=== PATIENT | male | born 1950 | race Caucasian/White ===

== ENCOUNTER → 2016-10-24 | Outpatient (CLI) | payer OTHER ==
[~2016-10-24] MED LIST: ADVIN10/60 INH; ALBU1AER9 INH; ATEN50TA8 PO; ATOR-24 PO; AVD5 PO; CLS20 PO; HYDC25 PO; MODA100T17 PO; MULTIGEN; PANT40TA PO; ROPI2TAB6 PO; SNG10 PO; SOLI10TA2 PO
[2016-10-24 13:57] LABS: BLOOD UREA NITROGEN 24 mg/dl (7-18); BUN/CREATININE RATIO 30.8 (10-20); CALCIUM 8.6 mg/dl (8.5-10.1); CARBON DIOXIDE 27 mmol/L (21-32); CHLORIDE 107 mmol/L (98-107); CREATININE 0.78 mg/dl (0.60-1.40); GLUCOSE 99 mg/dl (70-99); MAGNESIUM 2.3 mg/dl (1.8-2.4); POTASSIUM 4.3 mmol/L (3.5-5.1); SODIUM 141 mmol/L (136-145)
== END | disposition home or self-care (01) ==
LOC: C.LABMFLN 07:51
PROVIDERS: ATTEND Internal Medicine
DX: I50.33 Acute on chronic diastolic (congestive) heart failure (principal)

== ENCOUNTER → 2016-12-22 | Outpatient (CLI) | payer OTHER ==
[2016-12-22 18:26] LABS: ALT/SGPT 29 U/L (12-78); AST/SGOT 16 U/L (15-37); BLOOD UREA NITROGEN 27 mg/dl (7-18); BUN/CREATININE RATIO 31.6 (10-20); CARBON DIOXIDE 34 mmol/L (21-32); CHLORIDE 95 mmol/L (98-107); CREATININE 0.84 mg/dl (0.60-1.40); GLUCOSE 85 mg/dl (70-99); POTASSIUM 3.2 mmol/L (3.5-5.1); SODIUM 139 mmol/L (136-145)
[2016-12-22 18:36] LABS: ALB/GLOB RATIO 1.3 (0.9-2); ALKALINE PHOSPHATASE 122 U/L (45-117)
[2016-12-22 18:52] LABS: BASO % 0.5 %; BASO ABS # 0.05 K/uL (0-0.2); COMPLETE YES; EOS % 2.7 %; HEMATOCRIT 47.1 % (42-52); IG% 0.3 %; LYMPH % 20.4 %; LYMPH ABS # 1.93 K/uL (1.2-3.4); MEAN CELL VOLUME 84.6 fL (80-100); MEAN CORPUSCULAR HEMOGLOBIN 29.4 pg (25-34); MEAN CORPUSCULAR HGB CONC 34.8 g/dl (32-36); MEAN PLATELET VOLUME 11.3 fL (7.4-10.4); MONO % 13.1 %; PLATELET COUNT 199 K/uL (130-400); RED BLOOD COUNT 5.57 M/uL (4.7-6.1); WHITE BLOOD COUNT 9.48 K/uL (4.8-10.8)
[2016-12-23 07:21] LABS: ESTIMATED AVERAGE GLUCOSE 111 mg/dl; HA1C FLAG Normal (Normal)
== END | disposition home or self-care (01) ==
LOC: C.LABMFLN 12:21
PROVIDERS: ATTEND Family Medicine
DX: R60.9 Edema, unspecified (principal); R73.01 Impaired fasting glucose; E55.9 Vitamin D deficiency, unspecified; E53.8 Deficiency of other specified B group vitamins

== ENCOUNTER 2022-02-13 09:45 | Observation (INO) ==
--- NOTE | 2022-01-22 12:54 | PAT Medication Instructions ---
Medication Instructions Date of Service January 22, 2022 Home Medications ascorbic acid (vitamin C) 500 mg capsule 500 mg PO BID aspirin 81 mg tablet 81 mg PO 3XWK atorvastatin 40 mg tablet 40 mg PO UD carvedilol 12.5 mg tablet 12.5 mg PO BID cholecalciferol (vitamin D3) 50 mcg (2,000 unit) tablet 2,000 units PO QAM losartan 50 mg tablet 50 mg PO QAM lutein 20 mg tablet 20 mg PO QAM magnesium oxide 400 mg PO HS montelukast 10 mg tablet 10 mg PO HS naltrexone 8 mg-bupropion 90 mg tablet,extended release (Contrave) 2 tab PO BID pantoprazole 20 mg tablet,delayed release 20 mg PO QAM spironolactone 25 mg tablet 25 mg PO QAM triamcinolone acetonide 0.1 % topical cream 1 applic TOPICAL DAILY PRN tolterodine 2 mg capsule,extended release 24 hr 2 mg PO QAM torsemide 10 mg tablet 10 mg PO QAM carbidopa ER 25 mg-levodopa 100 mg tablet,extended release 1 tab PO DAILY PRN finasteride 5 mg tablet 5 mg PO QAM modafinil 200 mg tablet 200 mg PO DAILY PRN prednisone 20 mg tablet 20 mg PO UD PRN ropinirole 0.5 mg tablet 0.5 mg PO HS ropinirole 2 mg tablet 2 mg PO HS turmeric 400 mg capsule 400 mg PO QAM Continue as directed aspirin 81 mg tablet 81 mg PO 3XWK (continue as normal unless told otherwise by surgeon) prednisone 20 mg tablet 20 mg PO UD PRN (for gout flare) atorvastatin 40 mg tablet 40 mg PO UD ASK your prescriber and surgeon naltrexone 8 mg-bupropion 90 mg tablet,extended release (Contrave) 2 tab PO BID (Stop 72 hours prior to surgery if okay with prescriber) STOP taking 2 weeks before surgery (or as soon as possible if surgery is within 2 weeks) lutein 20 mg tablet 20 mg PO QAM turmeric 400 mg capsule 400 mg PO QAM STOP taking 24 hours before surgery triamcinolone acetonide 0.1 % topical cream 1 applic TOPICAL DAILY PRN DO NOT take the morning of surgery ascorbic acid (vitamin C) 500 mg capsule 500 mg PO BID cholecalciferol (vitamin D3) 50 mcg (2,000 unit) tablet 2,000 units PO QAM losartan 50 mg tablet 50 mg PO QAM spironolactone 25 mg tablet 25 mg PO QAM tolterodine 2 mg capsule,extended release 24 hr 2 mg PO QAM torsemide 10 mg tablet 10 mg PO QAM modafinil 200 mg tablet 200 mg PO DAILY PRN Take morning of surgery With a small sip of water, OTHERWISE NOTHING TO EAT OR DRINK AFTER MIDNIGHT: carvedilol 12.5 mg tablet 12.5 mg PO BID pantoprazole 20 mg tablet,delayed release 20 mg PO QAM carbidopa ER 25 mg-levodopa 100 mg tablet,extended release 1 tab PO DAILY PRN (if needed) finasteride 5 mg tablet 5 mg PO QAM Take evening before surgery ascorbic acid (vitamin C) 500 mg capsule 500 mg PO BID carvedilol 12.5 mg tablet 12.5 mg PO BID magnesium oxide 400 mg PO HS montelukast 10 mg tablet 10 mg PO HS carbidopa ER 25 mg-levodopa 100 mg tablet,extended release 1 tab PO DAILY PRN (if needed) modafinil 200 mg tablet 200 mg PO DAILY PRN (if needed) ropinirole 0.5 mg tablet 0.5 mg PO HS ropinirole 2 mg tablet 2 mg PO HS Other Notes If you have any questions please call us at [phone] or [phone] or [phone] or [phone]
--- NOTE | 2022-01-24 13:24 | Anesthesiology Consultation ---
Date of Service January 24, 2022 Assessment & Plan (1) Encounter for pre-operative examination: - COVID screening: Per assessment on 01/24: No known COVID-19 positive contacts or current COVID-19 related symptoms. Travel screen negative x 2+ weeks. Patient vaccinated. Surgeon arranging preop COVID testing. Awaiting results. - Cardiology office visit (01/14/22): "No concerning anginal symptoms. He is limited by problems with his left knee and is being evaluated further surgery in the near future.. He is going to be scheduled for knee surgery in the near future on his left knee. From a cardiac standpoint there is no contraindication to him undergoing surgery and he is at low risk. Because of history of pulmonary hypertension diastolic heart failure would recommend his diuretics be continued post surgery and he may need additional dose or 2 of IV diuretics in the immediate postop period to help maintain volume status. As soon as possible following his knee surgery I think it would be worthwhile for him to start wearing his lymphedema pumps to help control swelling.. He has bilateral lymphedema.. Is post ablation procedure of the greater saphenous veins bilaterally.. Pulmonary hypertension.. Breathing has been at baseline. No significant changes. Will reassess pulmonary pressures at the time of his stress test next year.. Return in about 1 year." Chart Review Chart Review: Acceptable Risk for Surgery and Patient seen in Pre Admission Testing Teaching & Discussion Pre-Anesthesia Teaching/Discussion Notes: Instructed NPO after midnight before surgery,except medications with 15 cc of water. Medication instructions provided according to the PAT guidelines. History Surgery Operation Date: 02/13/22 12:30 Proposed Procedures p Left Total Knee Arthroplasty - Damien Flores MD Height/Weight Height: 5 ft 9 in Weight: 105.9 kg Allergies Allergy/AdvReac Type Severity Reaction Status Date / Time amoxicillin Allergy Intermediate Rash Verified 01/24/22 13:15 carrot Allergy Mild Impaired Verified 01/24/22 13:15 breathing lisinopril AdvReac Mild Cough Verified 01/24/22 13:15 Medications Home Medications Medication Instructions Recorded Confirmed Last Taken ascorbic acid (vitamin C) 500 mg 500 mg PO BID cap 07/22/19 01/22/22 Unknown capsule aspirin 81 mg tablet 81 mg PO 3XWK tab 07/22/19 01/22/22 Unknown atorvastatin 40 mg tablet 40 mg PO UD tab 07/22/19 01/22/22 Unknown carvedilol 12.5 mg tablet 12.5 mg PO BID #180 tab 07/22/19 01/22/22 Unknown cholecalciferol (vitamin D3) 50 2,000 units PO QAM tab 07/22/19 01/22/22 Unknown mcg (2,000 unit) tablet losartan 50 mg tablet 50 mg PO QAM #30 tab 07/22/19 01/22/22 Unknown lutein 20 mg tablet 20 mg PO QAM tab 07/22/19 01/22/22 Unknown magnesium oxide 400 mg PO HS cap 07/22/19 01/22/22 Unknown montelukast 10 mg tablet 10 mg PO HS tab 07/22/19 01/22/22 Unknown naltrexone 8 mg-bupropion 90 mg 2 tab PO BID 07/22/19 01/22/22 Unknown tablet,extended release (Contrave) pantoprazole 20 mg tablet,delayed 20 mg PO QAM tab 07/22/19 01/22/22 Unknown release spironolactone 25 mg tablet 25 mg PO QAM tab 07/22/19 01/22/22 Unknown triamcinolone acetonide 0.1 % 1 applic TOPICAL DAILY PRN gm 07/22/19 01/22/22 Unknown topical cream tolterodine 2 mg capsule,extended 2 mg PO QAM 08/23/19 01/22/22 Unknown release 24 hr torsemide 10 mg tablet 10 mg PO QAM 08/15/20 01/22/22 Unknown carbidopa ER 25 mg-levodopa 100 mg 1 tab PO DAILY PRN 01/22/22 01/22/22 Unknown tablet,extended release finasteride 5 mg tablet 5 mg PO QAM 01/22/22 01/22/22 Unknown modafinil 200 mg tablet 200 mg PO DAILY PRN 01/22/22 01/22/22 Unknown prednisone 20 mg tablet 20 mg PO UD PRN 01/22/22 01/22/22 Unknown ropinirole 0.5 mg tablet 0.5 mg PO HS 01/22/22 01/22/22 Unknown ropinirole 2 mg tablet 2 mg PO HS 01/22/22 01/22/22 Unknown turmeric 400 mg capsule 400 mg PO QAM 01/22/22 01/22/22 Unknown Wheeled Walker #1 ea 01/24/22 01/24/22 Unknown Past Medical History Medical History BPH (benign prostatic hyperplasia) CAD (coronary artery disease) Non-obstructive Diastolic congestive heart failure Dyslipidemia GERD (gastroesophageal reflux disease) Hypertension Left knee DJD Overeating disorder Contrave daily Restless leg syndrome Carbidopa-levadopa PRN Sleep apnea CPAP Exercise / Class Metabolic Activity II 4-5 Yardwork/Stairs/Walk up hill (one FS (no CP, no SOB)) Past Family History Family History Father Myocardial infarction Mother Myocardial infarction Other No family history of adverse response to anesthesia Past Surgical History Surgical History History of anesthesia reaction Awareness during anesthesia/surgery (colonoscopy & hernia repair) History of appendectomy History of cardiac cath ~2018 ([facility]) > no stents History of colonoscopy History of cystoscopy History of decompression of median nerve pt unaware History of hernia repair inguinal hernia repair History of partial colectomy [facility]. r/t large polyp History of tonsillectomy History of uvulectomy S/P carpal tunnel release bilateral S/P epidural steroid injection cervical Past Anesthesia History No Family Hx of Anesthesia Complications and Other (Awareness during anesthesia/surgery (colonoscopy & hernia repair)) History of PONV No Hx of PONV and No Hx of Motion Sickness Social History Smoking Status: Never smoker Do You Dip or Chew Tobacco: No Hx Alcohol Use: Yes alcohol intake frequency: holidays/special occasions only Hx Substance Use: No substance use type: does not use Review of Systems Patient denies chest pain, shortness of breath, dyspnea on exertion, fever, chills, cough, wheezing, palpitations. Physical Exam Vital Signs VITALS BP 149/75 P 58 TEMP 97.5 SP02 98%RA RESP 16 PHYSICAL Mildly decreased cervical extension range of motion. Full TMJ range of motion. TMD 4 finger breaths Mallampati Score 3 Dentition: missing molar Lungs: clear throughout to auscultation Cardiac: regular rate and rhythm, no murmurs noted Spine: normal Carotid arteries: negative bruit Extremities: + lymphedema Lab Results Anesthesia Preop Results Results Anesthesia Widget: WBC 8.62 K/uL (4.8-10.8) 01/24/22 Hgb 15.1 g/dL (14.0-18.0) 01/24/22 Hct 44.5 % (42-52) 01/24/22 Plt 195 K/uL (130-400) 01/24/22 Na 137 mmol/L (136-145) 01/24/22 K 4.5 mmol/L (3.5-5.1) 01/24/22 Cl 105 mmol/L (98-107) 01/24/22 CO2 26 mmol/L (21-32) 01/24/22 BUN 23 mg/dl (6-23) 01/24/22 Creat 0.70 mg/dl (0.6-1.4) 01/24/22 Glucose Level 84 mg/dl (70-99(Fasting)) 01/24/22 PT 11.0 Seconds (9.0-12.0) 01/24/22 PTT 28.2 Seconds (21.0-31.0) 01/24/22 INR 1.0 (0.9-1.1) 01/24/22 Blood Type O Negative 01/24/22 Antibody Screen NEGATIVE 01/24/22 Testing Electrocardiogram Date: 01/24/22 SB at 56bpm. unconfirmed report. Chest X-Ray Date: 01/24/22 Findings: + NAD Echocardiogram Date: 02/02/17 LVEF 67%. Mildly increased concentric LV wall thickness. No regional motion abnormality. Grade 12 diastolic dysfunction. Moderate LAE. Mildly dilated IVC. Mild TR. Stress Test Date: 05/28/20 No evidence of ECG changes to suggest ischemia. Normal stress echo without evidence of infarct or ischemia. Trace to mild AI. EF 55-60%. Mild MR. Cardiac Catheterization Date: 06/04/17 Moderately elevated right heart pressures as well as the left ventricular end- diastolic pressure. EF greater than 65%. No significant valvular disease. Moderate disease in the proximal LAD with normal FFR assessment.
[~2022-02-13 09:45] MED LIST changes: +ACETAMINOPHEN 500 MG TAB PO SCH; -ADVIN10/60 INH; -ALBU1AER9 INH; -ATEN50TA8 PO; -ATOR-24 PO; -AVD5 PO; +BUPIVACAINE 0.5 % 5 MG/1 ML MPF 30ML VIAL ONE; +BUPIVACAINE LIPOSOME/PF 266 MG, BUPIVACAINE/EPINEPHRINE 50 ML, SODIUM CHLORIDE 0.9% 30 ... INFIL SCH; -CLS20 PO; +FAMOTIDINE 20 MG TAB PO SCH; -HYDC25 PO; +LR 500ML BOLUS, THEN 15ML/HR IV SCH; +LR 60ML/HR IV SCH; +METOCLOPRAMIDE HCL 10 MG TABLET PO SCH; -MODA100T17 PO; -MULTIGEN; -PANT40TA PO; -ROPI2TAB6 PO; +ROPIVACAINE 0.5% 5 MG/ML 30 ML VIAL ONE; -SNG10 PO; -SOLI10TA2 PO; +TRANEXAMIC ACID 1,000 MG **IV Pre-op IV SCH; +ceFAZolin 2000MG 2,000 MG/15 ML SYR IV SCH
--- NOTE | 2022-02-13 10:30 | History & Physical Bridge Note ---
Date of Service February 13, 2022 History & Physical Bridge Note I have examined the patient, reviewed the History & Physical and in the interval since the performance of the History & Physical I have noted the following changes of clinical significance: no changes noted
[2022-02-13] MEDS ORDERED: LIDOCAINE 2% 2 ML VIAL/AMP(20MG/ML) INFIL ONE (11:20)
[2022-02-13] MEDS ORDERED: PROPOFOL IV EMULSION 10 MG/ML 20 ML VIAL IV ONE ×3 (11:20→13:45)
[2022-02-13] MEDS ORDERED: ePHEDrine sulfate 50 MG/ML SYR ONE (11:20)
[2022-02-13] MEDS ORDERED: PHENYLEPHRINE 100MCG/ML 5ML SYR ONE (11:20)
[2022-02-13] MEDS ORDERED: fentaNYL citrate 100 MCG/2 ML VIAL ONE (11:21)
[2022-02-13] MEDS ORDERED: MIDAZOLAM HCL 1 MG/ML 2ML VIAL ONE ×2 (11:21)
[2022-02-13] MEDS ORDERED: BUPIVACAINE LIPOSOME 1.3% 266 MG/20 ML VIAL ONE (11:32)
[2022-02-13] MEDS ORDERED: BUPIVACAINE/EPINEPHRINE 0.25% 1:200,000 30 ML VIAL ONE (11:33)
[2022-02-13] MEDS ORDERED: SODIUM CHLORIDE 0.9% PF 50 ML VIAL ONE (11:33)
[2022-02-13] MEDS ORDERED: ePHEDrine sulfate 50 MG/ML AMP IV PRN (11:52)
[2022-02-13] MEDS ORDERED: KETOROLAC 30 MG/ML VIAL IV PRN (11:52)
[2022-02-13] MEDS ORDERED: HYDROmorphone INJ 1 MG/ML SYRINGE IV PRN (11:52)
[2022-02-13] MEDS ORDERED: ONDANSETRON INJ 2 MG/ML 2 ML VIAL IV PRN ×2 (11:52→16:07)
[2022-02-13] MEDS ORDERED: ATROPINE SULFATE 0.1 MG/ML 10ML SYR IV PRN (11:52)
--- NOTE | 2022-02-13 14:40 | Post Operative Brief Note ---
PG Immediate Post Op with CF Date of Surgery February 13, 2022 Pre & Post Diagnosis Operation Date: 02/13/22 12:30 Pre-Op Diagnosis: Left Knee Osteoarthritis Post-Op Diagnosis: Left Knee Osteoarthritis I identified the patient and participated in the time-out.: Yes Procedure Operation Date: 02/13/22 12:30 Actual Procedures p Left Total Knee Arthroplasty(Left) - Damien Flores MD Surgeon Damien Flores MD Stove Fitter Bowen Kirby PA-C Estimated Blood Loss 100 Findings Consistent with Post-Op Diagnosis Specimens Specimen Description: A. Left Knee Bone and Tissue Drains Tyler Catheter Complications none Disposition Accompanied Patient To Recovery: No
--- NOTE | 2022-02-13 15:22 | XRay Report ---
XR knee LT 1 or 2V routine CLINICAL HISTORY: Postoperative evaluation. COMPARISON: Knee radiographs January 24, 2022. FINDINGS: Alignment of the total left knee arthroplasty is anatomic. There is no periprosthetic frac ture. No unexpected radiopaque foreign bodies are present. There are skin rené. IMPRESSION: Expected findings following total left knee arthroplasty. ACT 112: Negative or not required by law. Electronically signed by: Hudson Aragon M.D. 02/13/2022 3:20 PM
--- NOTE | 2022-02-13 15:29 | Anesthesiology Progress Note ---
Date of Service February 13, 2022 Anesthesia Post Procedure Vital Signs Vital Signs: Temp Pulse Pulse Resp BP Pulse Ox 02/13/22 15:25 36.3 C L 57 L 18 140/69 96 02/13/22 15:15 61 20 106/77 97 02/13/22 15:05 60 18 110/69 98 02/13/22 14:55 57 L 16 118/57 L 100 02/13/22 14:45 60 14 110/57 L 99 02/13/22 14:39 36.2 C L 57 L 22 125/56 L 100 02/13/22 10:32 36.6 C 56 L 20 140/79 99 Transfer of Care Handoff Completed per policy Notes Mental Status: alert / awake / arousable Patient Amnestic to Procedure: Yes Nausea / Vomiting: adequately controlled Pain: adequately controlled Airway Patency, RR, SpO2: stable & adequate BP & HR: stable & adequate Hydration State: stable & adequate Neuraxial Anesthesia: was administered and sensory block is resolving Anesthetic Complications: no major complications apparent
[2022-02-13] MEDS ORDERED: bisacodyL 10 MG SUPP PR PRN (16:07)
[2022-02-13] MEDS ORDERED: modafiniL 100 MG TAB PO PRN (16:07)
[2022-02-13] MEDS ORDERED: CARBIDOPA/LEVODOPA 25/100MG EXT REL TAB PO PRN (16:07)
[2022-02-13] MEDS ORDERED: NALOXONE HCL 0.4 MG/1 ML VIAL/CARP IV PRN (16:07)
[2022-02-13] MEDS ORDERED: HYDROmorphone INJ 0.5 MG/0.5 ML SYR IV PRN (16:07)
[2022-02-13] MEDS ORDERED: TRIAMCINOLONE ACET 0.1% CR 15 GM TUBE TOP PRN (16:07)
[2022-02-13] MEDS ORDERED: predniSONE 20 MG TAB PO PRN (16:07)
[2022-02-13] MEDS ORDERED: METOCLOPRAMIDE HCL INJ 5 MG/ML 2 ML VIAL IV PRN (16:07)
[2022-02-13] MEDS ORDERED: ALUMINUM/MAGNESIUM SUSP 30 ML UDC PO PRN (16:07)
[2022-02-13] MEDS ORDERED: MAGNESIUM HYDROXIDE SUSP 30 ML UDC PO PRN (16:07)
[2022-02-13] MEDS: SODIUM CHLORIDE 0.9% 1000ML 1,000 ML IV SCH (16:22)
--- NOTE | 2022-02-13 17:18 | Operative Report ---
PG Post Operative Report Pre & Post Diagnosis Operation Date: 02/13/22 12:30 Pre-Op Diagnosis: Left Knee Osteoarthritis Post-Op Diagnosis: Left Knee Osteoarthritis I identified the patient and participated in the time-out.: Yes Procedure Operation Date: 02/13/22 12:30 Actual Procedures p Left Total Knee Arthroplasty(Left) - Damien Flores MD Surgeon Damien Flores MD Boat Outfitter Bowen Kirby PA-C Estimated Blood Loss 100 Findings Consistent with Post-Op Diagnosis Operative findings revealed advanced left knee tricompartment DJD. Specimens Left knee sent for pathology. Anesthesia Type Spinal MAC Disposition Accompanied Patient To Recovery: No Indications Patient is a 71-year-old gentleman with a long history of left knee pain discomfort describes gotten worse over time. He has been through extensive conservative treatment over the years which has become less successful. X-rays show advanced left knee DJD. He elected proceed with surgical treatment. Description of Procedure Operative implants consist of: 1. Biomet Vanguard size 70 left posterior stabilized femoral component. 2. Biomet size 75 tibial tray. 3. 12 mm posterior stabilized polyethylene insert. 4. 31 x 8 all polypatella. The patient was taken to the operating, identified, placed on the operating table supine position protectors were properly padded. IV antibiotics provided by anesthesia team. Spinal anesthetic and abductor canal block and provided in the holding area. Tyler catheter was placed in sterile fashion. Left thigh tent was then placed in the left lower extremities and prepped and draped in usual sterile fashion. The left leg was elevated exsanguinated with use of an Esmarch in terms playset 300 mmHg. An anterior posterior left knee was then performed to longitudinal incision centered over the patella. Sharp dissection was carried through subcutaneous this down the extensor mechanism. A medial parapatellar arthrotomy incision was made. Some subperiosteal dissection was carried out medially. The fat pad was dissected from each patella tendon. Lateral patellofemoral ligament was released. The patella was subluxated laterally and the knee was flexed. The osteophytes taken out distal femur. The ACL and PCL were then released from distal femur and the tibia subluxated anteriorly. The external treatment line jig was then placed in the interface the tibia and adjusted 14 mm medially. Proximal tibial cut was made remove about 2 mm of bone from most deficient aspect medial tibial plateau. The tibia was sized to a size 75. Attention drawn the femur. The distal femurWas entered with a sharp drill.The intramedullary canal was suction.A left 6 degree valgus cutting guide was placed. Distal femoral cut was made to take an additional 3 mm bone off distal femur. Femur sized to a size 70. The AP cutting block was pinned parallel to the epicondylar axis.The AP and chamfer cuts were made. The box cutting guide was placed but cut was madeThe remnants of the medial and lateral menisci were excised. The osteophytes were taken off posteriorly. Trial femoral component was placed. Tibial tray was pinned in maximum external rotation and the drill and stem punch used to create defect in proximal tibia for the tibial tray.Knee was trialed the 12 mm insert fit most appropriately. Attention drawn the patella. The patella was cleaned of soft tissues. Patella thickness measured 20 mm and cut down to 12. Was sized to a size 31 patella. It was prepared for the patella. The patella button was placed and it tracked nicely with no thumbs test. All trial components were removed. Double batch Palacos G cement was mixed. The implants were cemented and the knee was brought in full extension. Final cement check was then performed. The extensor mechanism was prepared with #1 PDS suture #1 Vicryl suture. This Tourniquet was let down for turn time 57 minutes. Hemostasis surgeons electrocautery. Extensor mechanism was closed followed by the subcutaneous tissues and skin with rené. A sterile dressing was applied. Patient then transferred to the recovery room in stable condition. Bowen Kirby, my physician architectural administrative assistant, was present for the entire procedure. His assistance was essential and required for appropriate patient positioning, prepping and draping, surgical exposure, performing the technical details of the operation, placement the implants, closure of the wound, and placement of the sterile bandage. I attest to the content of the Intraoperative Record and any orders documented therein. Any exceptions are noted below.
[2022-02-13] MEDS: ATORVASTATIN 40 MG TAB PO SCH (17:22)
[2022-02-13] MEDS: ASCORBIC ACID 500 MG TAB PO SCH (17:22)
[2022-02-13] MEDS: KETOROLAC TROMETHAMINE 15 MG/ML VIAL IV SCH ×2 (17:22→22:31)
[2022-02-13] MEDS: ceFAZolin 2000MG 2,000 MG/15 ML SYR IV SCH (20:13)
[2022-02-13] MEDS: rOPINIRole HCL 0.25 MG TABLET PO SCH (20:14)
[2022-02-13] MEDS: DOCUSATE SODIUM 100 MG CAP PO SCH (20:14)
[2022-02-13] MEDS: MAGNESIUM OXIDE 400 MG TAB PO SCH (20:14)
[2022-02-13] MEDS: MONTELUKAST SODIUM 10 MG TABLET PO SCH (20:14)
[2022-02-13] MEDS: carvediloL 12.5 MG TAB PO SCH (20:14)
[2022-02-13] MEDS: rOPINIRole HCL 2 MG TABLET PO SCH (20:14)
[2022-02-13] MEDS: TAPENTADOL HCL ER 50 MG TABCR PO SCH (20:14)
[2022-02-13] MEDS: SENNA 8.6 MG TAB PO SCH (20:15)
[2022-02-13] MEDS: ASPIRIN 81 MG ECTAB PO SCH (20:15)
[2022-02-13] MEDS ORDERED: TRANEXAMIC ACID / 0.7% NACL 1,000 MG/100 ML BAG IV SCH (20:45)
[2022-02-13] MEDS ORDERED: NON-FORMULARY MEDICATION (Ascorbic Acid (Vitamin C) 500 mg capsule) PO SCH (21:00)
[2022-02-13] MEDS: ACETAMINOPHEN 500 MG TAB PO SCH (22:32)
[2022-02-14] MEDS: SODIUM CHLORIDE 0.9% 1000ML 1,000 ML IV SCH (02:59)
[2022-02-14] MEDS: ceFAZolin 2000MG 2,000 MG/15 ML SYR IV SCH (05:08)
[2022-02-14] MEDS: KETOROLAC TROMETHAMINE 15 MG/ML VIAL IV SCH ×4 (05:08→21:12)
[2022-02-14] MEDS: ACETAMINOPHEN 500 MG TAB PO SCH ×3 (05:42→21:11)
[2022-02-14 07:30] LABS: Hematocrit (blood only) 37.8 % (42-52); Hemoglobin 12.4 g/dL (14.0-18.0); Mean Corpuscular Hemoglobin 29.5 pg (25-34); Mean Corpuscular Hgb Conc 32.8 g/dL (32-36); Mean Platelet Volume 10.7 fL (7.4-10.4); Platelet Count 146 K/uL (130-400); RDW Coefficient of Variation 13.6 % (11.5-14.5); RDW Standard Deviation 44.5 fL (36.4-46.3); White Blood Count 7.22 K/uL (4.8-10.8)
[2022-02-14] MEDS: ASCORBIC ACID 500 MG TAB PO SCH ×2 (07:31→16:24)
[2022-02-14] MEDS: PANTOprazole 40 MG TAB PO SCH (07:32)
[2022-02-14] MEDS: DOCUSATE SODIUM/SENNA 50/8.6MG TAB PO SCH (07:33)
[2022-02-14] MEDS: LOSARTAN POTASSIUM 50 MG TAB PO SCH (07:33)
[2022-02-14] MEDS: carvediloL 12.5 MG TAB PO SCH ×2 (07:33→21:10)
[2022-02-14] MEDS: FINASTERIDE 5 MG TAB PO SCH (07:34)
[2022-02-14] MEDS: ASPIRIN 81 MG ECTAB PO SCH ×2 (07:34→21:09)
[2022-02-14] MEDS: DOCUSATE SODIUM 100 MG CAP PO SCH ×2 (07:34→21:11)
[2022-02-14] MEDS: MULTIVITAMIN TAB PO SCH (07:34)
[2022-02-14] MEDS: CHOLECALCIFEROL 1,000 UNITS 25 MCG TAB PO SCH (07:34)
[2022-02-14] MEDS: TOLTERODINE TARTRATE LA 2 MG CAPCR PO SCH (07:35)
[2022-02-14] MEDS: TORSEMIDE 10 MG TAB PO SCH (07:35)
[2022-02-14] MEDS: TAMSULOSIN HCL 0.4 MG CAP PO SCH (07:35)
[2022-02-14] MEDS: SPIRONOLACTONE 25 MG TAB PO SCH (07:35)
[2022-02-14] MEDS: ATORVASTATIN 40 MG TAB PO SCH (07:36)
[2022-02-14 07:55] LABS: BUN Creatinine Ratio 31.4 (10-20); Calcium 8.1 mg/dl (8.5-10.1); Creatinine Clr Calc Pharmacy 115.4 ml/min; Est GFR (Non-African American) 94.9 ml/min
[2022-02-14] MEDS ORDERED: dexAMETHasone 10 MG in SYRINGE 0 ML IV SCH (08:00)
[2022-02-14] MEDS: TAPENTADOL HCL ER 50 MG TABCR PO SCH ×2 (08:16→21:09)
--- NOTE | 2022-02-14 08:20 | Progress Notes ---
DATE OF SERVICE: 02/14/2022. SUBJECTIVE: A 71-year-old gentleman, postoperative day 1 from a left knee replacement. He is doing well. He had a pretty good night. Pain is controlled. No chest pain or shortness of breath. Not f eeling dizzy or lightheaded. OBJECTIVE: VITAL SIGNS: Temperature is 36.5. Vital signs are stable. GENERAL: Physical examination shows a pleasant, elderly male. He is sitting up in bed and looks talia te comfortable this morning. LUNGS: Clear to auscultation. HEART: Regular rate and rhythm. ABDOMEN: Soft, nontender, nondistended. EXTREMITIES: Grossly neurovascularly intact except as follows: Examination of the left lower extrem ity reveals the dressing to be clean, dry and intact. He can dorsiflex and plantarflex his foot appr opriately. NEUROLOGIC: He is neurologically intact. LABORATORY DATA: Hemoglobin 12.4. Hematocrit 37.8. Electrolytes are pending. ASSESSMENT: A 71-year-old gentleman postoperative day 1 from a left knee replacement, doing well. P ain is controlled. He is neurologically intact. PLAN: 1. DVT prophylaxis including thigh-high TEDs, SCDs, and aspirin twice a day. 2. PT, OT, weightbear as tolerated. Left total knee protocol. 3. Pain control, doing okay with current pain regimen. 4. Disposition: Plan to discharge to home with some home health, depending on how therapy goes toda y. Job ID: [id number]
[2022-02-14] MEDS: oxyCODONE HCL IR 5 MG TAB (IMMEDIATE RELEASE) PO PRN (08:47)
[2022-02-14] MEDS ORDERED: NON-FORMULARY MEDICATION (Turmeric 400 mg Capsule) PO SCH (09:00)
[2022-02-14] MEDS: rOPINIRole HCL 0.25 MG TABLET PO SCH (21:09)
[2022-02-14] MEDS: MONTELUKAST SODIUM 10 MG TABLET PO SCH (21:09)
[2022-02-14] MEDS: rOPINIRole HCL 2 MG TABLET PO SCH (21:11)
[2022-02-14] MEDS: SENNA 8.6 MG TAB PO SCH (21:12)
[2022-02-14] MEDS: MAGNESIUM OXIDE 400 MG TAB PO SCH (21:12)
[2022-02-15] MEDS: KETOROLAC TROMETHAMINE 15 MG/ML VIAL IV SCH ×2 (04:35→11:00)
[2022-02-15] MEDS: ACETAMINOPHEN 500 MG TAB PO SCH (05:19)
--- NOTE | 2022-02-15 08:47 | Progress Notes ---
DATE OF SERVICE: 02/15/2022. SUBJECTIVE: A 71-year-old gentleman, postoperative day 2 from left knee replacement. He is doing qu ite a bit better this morning. Denies any chest pain or shortness of breath. Knee was pretty painfu l last night, but doing better this morning. OBJECTIVE: VITAL SIGNS: Temperature 36.6. Vital signs are stable. GENERAL: Shows a pleasant, elderly male. He is sitting up in bedside chair, looks completely comfor table. EXTREMITIES: Examination of the left leg reveals the dressing to be clean, dry and intact. He has d ifficulty doing a straight leg raise. He can dorsiflex and plantarflex his foot appropriately. He i s neurologically intact. ASSESSMENT: A 71-year-old gentleman postoperative day 2 from a left knee replacement. He seems to b e doing quite a bit better this morning. We will see how therapy goes today. His pain is controlled . PLAN: 1. DVT prophylaxis including thigh-high TEDs, SCDs, and aspirin twice a day. 2. PT, OT, weightbear as tolerated. Left total knee protocol. 3. Pain control, seems to be doing okay with current pain regimen. 4. Disposition: Plan to discharge to home with home health hopefully today. We will see how he farias s in therapy. Job ID: [id number]
[2022-02-15] MEDS: TAPENTADOL HCL ER 50 MG TABCR PO SCH (08:50)
[2022-02-15] MEDS: PANTOprazole 40 MG TAB PO SCH (08:50)
[2022-02-15] MEDS: TAMSULOSIN HCL 0.4 MG CAP PO SCH (08:50)
[2022-02-15] MEDS: oxyCODONE HCL IR 5 MG TAB (IMMEDIATE RELEASE) PO PRN (08:50)
[2022-02-15] MEDS: TOLTERODINE TARTRATE LA 2 MG CAPCR PO SCH (08:50)
[2022-02-15] MEDS: SPIRONOLACTONE 25 MG TAB PO SCH (08:50)
[2022-02-15] MEDS: TORSEMIDE 10 MG TAB PO SCH (08:50)
[2022-02-15] MEDS: ATORVASTATIN 40 MG TAB PO SCH (08:51)
[2022-02-15] MEDS: ASPIRIN 81 MG ECTAB PO SCH (08:51)
[2022-02-15] MEDS: MULTIVITAMIN TAB PO SCH (08:51)
[2022-02-15] MEDS: DOCUSATE SODIUM/SENNA 50/8.6MG TAB PO SCH (08:51)
[2022-02-15] MEDS: DOCUSATE SODIUM 100 MG CAP PO SCH (08:51)
[2022-02-15] MEDS: carvediloL 12.5 MG TAB PO SCH (08:51)
[2022-02-15] MEDS: LOSARTAN POTASSIUM 50 MG TAB PO SCH (08:51)
[2022-02-15] MEDS: ASCORBIC ACID 500 MG TAB PO SCH (08:51)
[2022-02-15] MEDS: CHOLECALCIFEROL 1,000 UNITS 25 MCG TAB PO SCH (08:51)
[2022-02-15] MEDS: FINASTERIDE 5 MG TAB PO SCH (08:51)
--- NOTE | 2022-02-18 15:05 | Discharge Summary ---
Date of Service February 18, 2022 Discharge Data Procedures Performed Operation Date: 02/13/22 12:30 Actual Procedures p Left Total Knee Arthroplasty(Left) - Damien Flores MD Hospital Course (1) Status post total left knee replacement: This patient is a 71 year old patient admitted on 02/13/22 and underwent total knee arthroplasty. He tolerated the procedure well and there were no complications. Transferred to the PACU post op and later to the orthopedic floor for further care. He was given ancef for antibiotic prophylaxis. He was also given AUBRIE stockings, SCDs, and aspirin for DVT prophylaxis. Hemoglobin, hematocrit, and vital signs were monitored during his hospital stay and remained stable. Did not require any blood transfusions. There were no complications during his hospital stay. By post op day #2 the patient was tolerating a regular diet, pain was reasonably controlled with oral pain medicine, and he was participating in physical therapy. On post op day #2 the patient was discharged home and set up with home health care. He was given printed discharge instructions including prescriptions for extra strength tylenol, aspirin, zofran, toradol, flomax, and oxycodone. Continue physical therapy, weight bearing as tolerated. Continue AUBRIE stockings. Follow up approximately 2 weeks post op or sooner if there are problems or concerns. Coding Level of Care Code None Diagnoses Status post total left knee replacement Z96.652
== END 2022-02-15 16:13 | disposition home health service (06) ==
LOC: 3E 09:45 → ASU 09:45

== ENCOUNTER 2023-12-14 09:08 | Observation (INO) ==
--- NOTE | 2023-11-16 15:50 | PAT Medication Instructions ---
Medication Instructions Date of Service November 16, 2023 Home Medications Medication Instructions Recorded clindamycin HCl 300 mg capsule 600 mg (2 x 300 mg) PO ONCE #4 caps 02/23/23 carbidopa ER 25 mg-levodopa 100 mg See Rx Instructions .Route 07/01/23 tablet,extended release .COMPLEX #30 tabs ropinirole 0.5 mg tablet See Rx Instructions .Route 09/28/23 .COMPLEX #30 tabs ropinirole 2 mg tablet See Rx Instructions .Route 09/28/23 .COMPLEX #30 tabs ascorbic acid (vitamin C) 500 mg capsule 500 mg PO BID atorvastatin 40 mg tablet 40 mg PO HS carvedilol 12.5 mg tablet 12.5 mg PO BID cholecalciferol (vitamin D3) 50 mcg (2,000 unit) tablet 2,000 units PO QAM losartan 50 mg tablet 50 mg PO QAM lutein 20 mg tablet 20 mg PO QAM magnesium oxide 400 mg PO HS montelukast 10 mg tablet 10 mg PO HS naltrexone 8 mg-bupropion 90 mg tablet,extended release (Contrave) 2 tab PO BID pantoprazole 20 mg tablet,delayed release 20 mg PO QAM triamcinolone acetonide 0.1 % topical cream 1 applic topical DAILY PRN torsemide 10 mg tablet 10 mg PO QAM finasteride 5 mg tablet 5 mg PO QAM prednisone 20 mg tablet 20 mg PO UD PRN aspirin 81 mg tablet,delayed release (Hugo Low Dose Aspirin) 81 mg PO .three times weekly tolterodine 2 mg capsule,extended release 24 hr 2 mg PO QAM clindamycin HCl 300 mg capsule 600 mg (2 x 300 mg) PO ONCE carbidopa ER 25 mg-levodopa 100 mg tablet,extended release See Rx Instructions .Route .COMPLEX mecobalamin (vitamin B12) 2,500 mcg chewable tablet 2,500 mcg PO .WEEKLY ropinirole 0.5 mg tablet See Rx Instructions .Route .COMPLEX ropinirole 2 mg tablet See Rx Instructions .Route .COMPLEX modafinil 200 mg tablet 200 mg PO DAILY PRN nystatin 100,000 unit/gram topical cream 1 applic topical BID PRN spironolactone 25 mg tablet 25 mg PO QAM Continue as directed clindamycin HCl 300 mg capsule 600 mg (2 x 300 mg) PO ONCE carbidopa ER 25 mg-levodopa 100 mg tablet,extended release See Rx Instructions .Route .COMPLEX ropinirole 0.5 mg tablet See Rx Instructions .Route .COMPLEX ropinirole 2 mg tablet See Rx Instructions .Route .COMPLEX prednisone 20 mg tablet 20 mg PO UD PRN(if needed) ASK your prescriber and surgeon aspirin 81 mg tablet,delayed release (Hugo Low Dose Aspirin) 81 mg PO .three times weekly STOP taking 2 weeks before surgery (or as soon as possible if surgery is within 2 weeks) lutein 20 mg tablet 20 mg PO QAM STOP taking 24 hours before surgery triamcinolone acetonide 0.1 % topical cream 1 applic topical DAILY PRN nystatin 100,000 unit/gram topical cream 1 applic topical BID PRN DO NOT take the morning of surgery ascorbic acid (vitamin C) 500 mg capsule 500 mg PO BID cholecalciferol (vitamin D3) 50 mcg (2,000 unit) tablet 2,000 units PO QAM losartan 50 mg tablet 50 mg PO QAM naltrexone 8 mg-bupropion 90 mg tablet,extended release (Contrave) 2 tab PO BID torsemide 10 mg tablet 10 mg PO QAM tolterodine 2 mg capsule,extended release 24 hr 2 mg PO QAM mecobalamin (vitamin B12) 2,500 mcg chewable tablet 2,500 mcg PO .WEEKLY modafinil 200 mg tablet 200 mg PO DAILY PRN spironolactone 25 mg tablet 25 mg PO QAM Take morning of surgery With a small sip of water, OTHERWISE NOTHING TO EAT OR DRINK AFTER MIDNIGHT: carvedilol 12.5 mg tablet 12.5 mg PO BID pantoprazole 20 mg tablet,delayed release 20 mg PO QAM finasteride 5 mg tablet 5 mg PO QAM Take evening before surgery ascorbic acid (vitamin C) 500 mg capsule 500 mg PO BID atorvastatin 40 mg tablet 40 mg PO HS carvedilol 12.5 mg tablet 12.5 mg PO BID magnesium oxide 400 mg PO HS montelukast 10 mg tablet 10 mg PO HS naltrexone 8 mg-bupropion 90 mg tablet,extended release (Contrave) 2 tab PO BID Other Notes If you have any questions please call us at [phone] or [phone] or [phone] or [phone]
--- NOTE | 2023-11-20 10:16 | Anesthesiology Consultation ---
Date of Service November 20, 2023 Assessment & Plan (1) Encounter for pre-operative examination: - Infectious disease screening: Per assessment on 11/20/23: No known infectious disease contacts or current infectious disease symptoms. No noted recent Covid positive test result. - Outpatient joint assessment: Pt currently scheduled for inpatient pathway. If surgeon requests review for outpatient joint pathway, patient is not recommended candidate for outpatient joint program from anesthesia standpoint based on available information. - S/P Left TKA (02/13/22): SAB at L3-4 + regional at [facility] - Cardiology visit (01/13/23): "Followup with mild nonobstructive coronary disease as well as diastolic heart failure. He underwent a stress echocardiogram recently which looked very good. Did not quite reach 85% of maximal predicted heart rate but decent exercise capacity on the treadmill.. No evidence of overt ischemia..Structural heart disease but without signs or symptoms of HF.. Chronic diastolic heart failure.. He appears to be well compensated.. Has a history of mild plaquing of the LAD with normal FFR assessment. Recent stress test looked very good. Exercise capacity was good considering recent knee surgery.. Lymphedema.. He has had good control.. I have asked him to call if he does have increased swelling. Return in about 1 year" Chart Review Chart Review: Acceptable Risk for Surgery and Patient seen in Pre Admission Testing Teaching & Discussion Pre-Anesthesia Teaching/Discussion Notes: Instructed NPO after midnight before surgery,except medications with 15 cc of water. Medication instructions provided according to the PAT guidelines. History Surgery Operation Date: 12/14/23 07:00 Proposed Procedures p Right Total Knee Arthroplasty - Damien Flores MD Height/Weight Height: 5 ft 8 in Weight: 105.7 kg Allergies Allergy/AdvReac Type Severity Reaction Status Date / Time amoxicillin Allergy Mild Rash Verified 11/16/23 13:49 lisinopril AdvReac Mild Cough Verified 11/16/23 13:49 Medications Home Medications Medication Instructions Recorded Confirmed Last Taken ascorbic acid (vitamin C) 500 mg 500 mg PO BID 07/22/19 11/16/23 02/21/22 08:00 capsule atorvastatin 40 mg tablet 40 mg PO HS 07/22/19 11/16/23 02/20/22 carvedilol 12.5 mg tablet 12.5 mg PO BID #180 tabs 07/22/19 11/16/2322 08:00 cholecalciferol (vitamin D3) 50 2,000 units PO QAM 07/22/19 11/16/23 02/21/22 mcg (2,000 unit) tablet losartan 50 mg tablet 50 mg PO QAM #30 tabs 07/22/19 11/16/23 02/21/22 lutein 20 mg tablet 20 mg PO QAM 07/22/19 11/16/23 02/21/22 magnesium oxide 400 mg PO HS 07/22/19 11/16/23 02/20/22 montelukast 10 mg tablet 10 mg PO HS 07/22/19 11/16/23 02/20/22 naltrexone 8 mg-bupropion 90 mg 2 tab PO BID 07/22/19 11/16/23 02/21/22 08:00 tablet,extended release (Contrave) pantoprazole 20 mg tablet,delayed 20 mg PO QAM 07/22/19 11/16/23 02/21/22 release triamcinolone acetonide 0.1 % 1 applic topical DAILY PRN skin 07/22/19 11/16/23 02/11/22 07:00 topical cream rash torsemide 10 mg tablet 10 mg PO QAM 08/15/20 11/16/23 02/21/22 finasteride 5 mg tablet 5 mg PO QAM 01/22/22 11/16/23 02/21/22 prednisone 20 mg tablet 20 mg PO UD PRN gout flare up 01/22/22 11/16/23 09/03/21 aspirin 81 mg tablet,delayed 81 mg PO .three times weekly 06/26/22 11/16/23 Unknown release (Hugo Low Dose Aspirin) tolterodine 2 mg capsule,extended 2 mg PO QAM 06/26/22 11/16/23 Unknown release 24 hr clindamycin HCl 300 mg capsule 600 mg (2 x 300 mg) PO ONCE #4 caps 02/23/23 11/16/23 Unknown carbidopa ER 25 mg-levodopa 100 mg See Rx Instructions .Route 07/01/23 11/16/23 Unknown tablet,extended release .COMPLEX #30 tabs mecobalamin (vitamin B12) 2,500 2,500 mcg PO .WEEKLY 08/19/23 11/16/23 Unknown mcg chewable tablet ropinirole 0.5 mg tablet See Rx Instructions .Route 09/28/23 11/16/23 Unknown .COMPLEX #30 tabs ropinirole 2 mg tablet See Rx Instructions .Route 09/28/23 11/16/23 Unknown .COMPLEX #30 tabs modafinil 200 mg tablet 200 mg PO DAILY PRN Fatigue 11/16/23 11/16/23 Unknown nystatin 100,000 unit/gram topical 1 applic topical BID PRN rash on 11/16/23 11/16/23 Unknown cream legs spironolactone 25 mg tablet 25 mg PO QAM 11/16/23 11/16/23 Unknown Past Medical History Medical History Arthritis BPH (benign prostatic hyperplasia) CAD (coronary artery disease) Non-obstructive Diastolic congestive heart failure Dyslipidemia GERD (gastroesophageal reflux disease) Hx of gout Hypertension followed by Dr. Bone Overeating disorder Contrave daily Restless leg syndrome Carbidopa-levadopa PRN Sleep apnea CPAP (compliant) Exercise / Class Metabolic Activity II 4-5 Yardwork/Stairs/Walk up hill (one FS (no CP, no SOB)) Past Family History Family History Father Myocardial infarction Mother Myocardial infarction Other No family history of adverse response to anesthesia Past Surgical History Surgical History History of anesthesia reaction Awareness during anesthesia/surgery (colonoscopy & hernia repair) History of appendectomy History of cardiac cath 2017- no stents History of colonoscopy History of cystoscopy History of decompression of median nerve Per records History of hernia repair inguinal hernia repair History of partial colectomy [facility]. r/t large polyp History of tonsillectomy History of total knee replacement Left TKA (02/13/22): SAB at L3-4 + regional at [facility] History of uvulectomy S/P carpal tunnel release bilateral S/P epidural steroid injection cervical Past Anesthesia History No Family Hx of Anesthesia Complications and Other (Awareness during anesthesia/surgery (colonoscopy & hernia repair)) History of PONV No Hx of PONV and Hx of Motion Sickness (Rare, situational) Social History Smoking Status: Never smoker Do You Dip or Chew Tobacco: No Hx Alcohol Use: Yes Alcohol type: wine alcohol intake frequency: holidays/special occasions only substance use type: does not use Review of Systems Patient denies chest pain, shortness of breath, dyspnea on exertion, fever, chills, cough, wheezing, palpitations. Physical Exam Vital Signs VITALS BP 131/74 P 54 TEMP 97.6 SP02 96%RA RESP 18 PHYSICAL Mildly decreased cervical extension range of motion. Full TMJ range of motion. TMD 4 finger breaths Mallampati Score 3 Dentition: intact, + several crowns Lungs: clear throughout to auscultation Cardiac: regular rate and rhythm, no murmurs noted Spine: normal Carotid arteries: negative bruit Extremities: no LE edema Lab Results Anesthesia Preop Results Results Anesthesia Widget: WBC 7.98 K/ul (4.8-10.8) 11/20/23 Hgb 15.5 g/dl (14.0-18.0) 11/20/23 Hct 45.4 % (42.0-52.0) 11/20/23 Plt 199 K/uL (130-400) 11/20/23 Na 137 mmol/L (136-145) 11/20/23 K 4.1 mmol/L (3.5-5.1) 11/20/23 Cl 105 mmol/L (98-107) 11/20/23 CO2 27 mmol/L (21-32) 11/20/23 BUN 26 mg/dl (6-23) H 11/20/23 Creat 0.74 mg/dl (0.6-1.4) 11/20/23 Glucose Level 112 mg/dl (70-99(Fasting)) H 11/20/23 PT 11.2 Seconds (9.0-12.0) 11/20/23 PTT 28 Seconds (21-31) 11/20/23 INR 1.0 (0.9-1.1) 11/20/23 Blood Type O Negative 11/20/23 Antibody Screen NEGATIVE 11/20/23 Testing Electrocardiogram Date: 11/20/23 NSR at 61bpm. "Normal ECG" Chest X-Ray Date: 11/20/23 FINDINGS: PA and lateral chest radiographs are compared to study dated 01/24/2022. The cardiomediastinal silhouette is unremarkable. Chronic interstitial thickening is similar to previous. The lungs and pleural spaces are clear. There is no pneumothorax. The skeletal structures are osteopenic. The bony thorax appears intact. Degenerative change is noted in the spine. IMPRESSION: No active disease in the chest. Echocardiogram Date: 02/02/17 LVEF 67%. Mildly increased concentric LV wall thickness. No regional motion abnormality. Grade 12 diastolic dysfunction. Moderate LAE. Mildly dilated IVC. Mild TR. Stress Test Date: 12/24/22 No diagnostically significant ECG changes noted at 83% of the target. Stress ECG is nondiagnostic due to failure to achieve 85% MPHR. 8.6 METS. Calculated Gaytan treadmill score of 7. Normal stress echocardiogram at 83% MPHR. No echocardiographic evidence of ischemia or scar. Post-rest EF hyperdynamic, greater than 65%. Rest echo: EF 55-60%. Mild LAD. Mild MR/TR/AR. "This study shows a low prognostic risk. Similar to the prior study of 05/2020." Cardiac Catheterization Date: 06/04/17 Moderately elevated right heart pressures as well as the left ventricular end- diastolic pressure. EF greater than 65%. No significant valvular disease. Moderate disease in the proximal LAD with normal FFR assessment.
--- NOTE | 2023-12-12 10:27 | History & Physical Report ---
Date of Service December 12, 2023 Assessment & Plan (1) Right knee DJD: 73-year-old gentleman with advanced right knee DJD with a history of left knee replaced in the past. He has failed conservative treatment rate have his right knee replaced but he is happy with the left knee. He did have quite a bit of sw elling after surgery and hopefully we can control that and have a little bit better experience this time around. Plan: We talked about treatment. He like to have his right knee replaced. Will take the operative right total knee replacement. The risks Mente this procedure explained to the patient include but not limited to DVT PE infection neurological injury vascular bleeding palm pain limb range of motion test is fairly with symptoms incomplete relief of symptoms excetra. The patient understands and desires to proceed. Informed consent was obtained. He did have quite a bit of swelling after his left knee surgery and will hopefully be able to control this a little bit better with medical treatments including some NSAIDs and may use some prednisone. He is planned to be discharged to home with his assistance [facility]. He prophylaxis will be thigh-high teds, SCDs, baby aspirin twice a day. (2) Status post total left knee replacement: History of Present Illness Chief Complaint: . Persistent, progressive right knee pain and discomfort. Primary Care Provider: Clyde White DO . Patient is a 73-year-old gentleman who presents for surgical treatment of his right knee. Is got a long history of knee problems had his left knee replaced in the past. He did pretty well with that but had quite a bit of swelling. The swelling is gone down pretty happy with the knee. His right knee continues to bother him. We have been treating him well over an extended period time with injection which have become less successful. Pains are mostly medial but some global pain. The more he is up on it the more it hurts. Limps more as the day goes on. He is ready to have his right knee fixed. Allergies Allergy/AdvReac Type Severity Reaction Status Date / Time amoxicillin Allergy Mild Rash Verified 11/16/23 13:49 lisinopril AdvReac Mild Cough Verified 11/16/23 13:49 Home Medications Medication Instructions Recorded Confirmed Type ascorbic acid (vitamin C) 500 mg 500 mg PO BID 07/22/19 11/16/23 History capsule atorvastatin 40 mg tablet 40 mg PO HS 07/22/19 11/16/23 History carvedilol 12.5 mg tablet 12.5 mg PO BID #180 tabs 07/22/19 11/16/23 History cholecalciferol (vitamin D3) 50 2,000 units PO QAM 07/22/19 11/16/23 History mcg (2,000 unit) tablet losartan 50 mg tablet 50 mg PO QAM #30 tabs 07/22/19 11/16/23 History lutein 20 mg tablet 20 mg PO QAM 07/22/19 11/16/23 History magnesium oxide 400 mg PO HS 07/22/19 11/16/23 History montelukast 10 mg tablet 10 mg PO HS 07/22/19 11/16/23 History naltrexone 8 mg-bupropion 90 mg 2 tab PO BID 07/22/19 11/16/23 History tablet,extended release (Contrave) pantoprazole 20 mg tablet,delayed 20 mg PO QAM 07/22/19 11/16/23 History release triamcinolone acetonide 0.1 % 1 applic topical DAILY PRN skin 07/22/19 11/16/23 History topical cream rash torsemide 10 mg tablet 10 mg PO QAM 08/15/20 11/16/23 History finasteride 5 mg tablet 5 mg PO QAM 01/22/22 11/16/23 History prednisone 20 mg tablet 20 mg PO UD PRN gout flare up 01/22/22 11/16/23 History aspirin 81 mg tablet,delayed 81 mg PO .three times weekly 06/26/22 11/16/23 History release (Hugo Low Dose Aspirin) tolterodine 2 mg capsule,extended 2 mg PO QAM 06/26/22 11/16/23 History release 24 hr clindamycin HCl 300 mg capsule 600 mg (2 x 300 mg) PO ONCE #4 caps 02/23/23 11/16/23 Rx carbidopa ER 25 mg-levodopa 100 mg See Rx Instructions .Route 07/01/23 11/16/23 Rx tablet,extended release .COMPLEX #30 tabs mecobalamin (vitamin B12) 2,500 2,500 mcg PO .WEEKLY 08/19/23 11/16/23 History mcg chewable tablet ropinirole 0.5 mg tablet See Rx Instructions .Route 12/11/23 01/29/24 Rx .COMPLEX #30 tabs ropinirole 2 mg tablet See Rx Instructions .Route 09/28/23 11/16/23 Rx .COMPLEX #30 tabs modafinil 200 mg tablet 200 mg PO DAILY PRN Fatigue 11/16/23 11/16/23 History nystatin 100,000 unit/gram topical 1 applic topical BID PRN rash on 11/16/23 11/16/23 History cream legs spironolactone 25 mg tablet 25 mg PO QAM 11/16/23 11/16/23 History acetaminophen 500 mg tablet 1,000 mg (2 x 500 mg) PO TID pain 12/12/23 Rx (Tylenol Extra Strength) 30 days #180 tabs aspirin 81 mg tablet,delayed 81 mg PO BID 45 days #90 tabs 12/12/23 Rx release (Hugo Low Dose Aspirin) cefadroxil 500 mg capsule 500 mg PO BID 7 days #14 caps 12/12/23 Rx ketorolac 10 mg tablet 10 mg PO Q6 pain 5 days #20 tabs 12/12/23 Rx ondansetron 4 mg disintegrating 4 mg PO Q8 PRN nausea #20 tabs 12/12/23 Rx tablet oxycodone 5 mg tablet 5 - 10 mg (1 - 2 x 5 mg) PO Q6 PRN 12/12/23 Rx pain #40 tabs sennosides 8.6 mg tablet (Senokot) 8.6 mg PO BID prevent constipation 12/12/23 Rx 14 days #28 tabs tamsulosin 0.4 mg capsule (Flomax) 0.4 mg PO DAILY #7 caps 12/12/23 Rx Past Med/Surg History Medical History Arthritis Hx of gout Overeating disorder Contrave daily Sleep apnea CPAP (compliant) GERD (gastroesophageal reflux disease) BPH (benign prostatic hyperplasia) Restless leg syndrome Carbidopa-levadopa PRN CAD (coronary artery disease) Non-obstructive Diastolic congestive heart failure Dyslipidemia Hypertension followed by Dr. Bone Surgical History History of total knee replacement Left TKA (02/13/22): SAB at L3-4 + regional at [facility] History of anesthesia reaction Awareness during anesthesia/surgery (colonoscopy & hernia repair) S/P carpal tunnel release bilateral History of cardiac cath 2017- no stents History of appendectomy History of colonoscopy S/P epidural steroid injection cervical History of uvulectomy History of tonsillectomy History of decompression of median nerve Per records History of partial colectomy [facility] [place]. 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 Physical Exam . Physical examination was a pleasant middle-age male. Looks in pretty good health. Examination of the right knee reveals patient walks with a slight bit of a limp. Good varus alignment to his knee. Small knee effusion. He is tender over the medial joint line. Range of motion is 5-1 25. No instability. No pain with hip motion. Examination left knee reveals a well-healed incision. Got anatomic alignment to the knee. Is got some chronic diffuse mild edema. Range of motion 0-1 20. Good straight leg raise. Constitutional WD/WN, vitals as above Neck trachea midline, no thyromegaly Respiratory normal respiratory effort, lungs clear to auscultation Cardiovascular RRR, no murmur, no edema Gastrointestinal (Abdomen) normal bowel sounds, soft, nontender, no hepatosplenomegaly Results & Data Results & Data Laboratory Results . Diagnostic Findings . X-rays of the right knee were reviewed. Shows advanced medial compartment arthritis. Is got complete loss of his medial joint space for the rest of the knee looks pretty good. Left knee replaced looks to be good position without problems. PG Care Time/CCT Total # of Minutes Spent Total Time Spent with Patient: Total time spent is greater than 50% in coordination of care (as documented) at patient's floor/unit and/or counseling patient: Coding Level of Care Code None Diagnoses Right knee DJD M17.11 Status post total left knee replacement Z96.652
[~2023-12-14 09:08] MED LIST changes: -ACETAMINOPHEN 500 MG TAB PO SCH; -BUPIVACAINE 0.5 % 5 MG/1 ML MPF 30ML VIAL ONE; +BUPIVACAINE 0.5 % 5 MG/1 ML PF 10ML VIAL ONE; -BUPIVACAINE LIPOSOME/PF 266 MG, BUPIVACAINE/EPINEPHRINE 50 ML, SODIUM CHLORIDE 0.9% 30 ... INFIL SCH; +DEXAMETHASONE SOD INJ 4 MG/ML VIAL ONE; -FAMOTIDINE 20 MG TAB PO SCH; -LR 500ML BOLUS, THEN 15ML/HR IV SCH; -LR 60ML/HR IV SCH; -METOCLOPRAMIDE HCL 10 MG TABLET PO SCH; -TRANEXAMIC ACID 1,000 MG **IV Pre-op IV SCH; -ceFAZolin 2000MG 2,000 MG/15 ML SYR IV SCH
[2023-12-14] MEDS: LR 500ML BOLUS, THEN 15ML/HR IV SCH (09:50)
[2023-12-14] MEDS: LR 60ML/HR IV SCH (10:04)
[2023-12-14] MEDS ORDERED: fentaNYL citrate PF 100 MCG/2 ML VIAL ONE (10:18)
[2023-12-14] MEDS ORDERED: MIDAZOLAM HCL 1 MG/ML 2ML VIAL ONE (10:18)
--- NOTE | 2023-12-14 10:19 | History & Physical Bridge Note ---
Date of Service December 14, 2023 History & Physical Bridge Note I have examined the patient, reviewed the History & Physical and in the interval since the performance of the History & Physical I have noted the following changes of clinical significance: no changes noted
[2023-12-14] MEDS: CeleBREX 200 MG CAP PO SCH (10:23)
[2023-12-14] MEDS: ACETAMINOPHEN 500 MG TAB PO SCH ×2 (10:23→15:03)
[2023-12-14] MEDS: FAMOTIDINE 20 MG TAB PO SCH (10:23)
[2023-12-14] MEDS: METOCLOPRAMIDE HCL 10 MG TABLET PO SCH (10:24)
[2023-12-14] MEDS: dexAMETHasone**PF** 10 MG/ML VIAL IV SCH (10:24)
[2023-12-14] MEDS ORDERED: ONDANSETRON INJ 2 MG/ML 2 ML VIAL ONE (10:33)
--- OUTSIDE RECORDS SUMMARY | 2023-12-14 10:35 | External Medical Summary | Summary of Care ---
Author Name Unknown Organization [facility] Address [address] [facility] [place] [address] Phone [phone] Care Team Providers Care Product Support Sales Representative Name Role Phone Christopher Vicente DO, David Vincent Primary Care Provid er Encounter Details Date Type Department Care Team (Late st Contact Info) Description 12/11/2023 Telephone [facility] [address] [place] [address] Yazmin Becerril MD [address] [place] [address] Allergies Active Allergy Reactions Criticality Noted Date Comments Amoxicillin 06/28/2002 rash Lisinopril Cough 11/30/2015 documented as of this encounter (statuses as of 12/11/2023) Medications Medication Sig Dispensed Refills Start Date End Date Status ASPIRIN 81 MG PO TABS one tablet daily 0 Active LUTEIN 20 MG PO TABS daily 0 Acti ve VITAMIN C 500 MG PO TABS Take 1 Tablet by mouth in the morning and 1 Tablet before bedtime. 0 Active COREG 12.5 MG PO TABS twice a day 0 Ac tive MAGNESIUM 400 MG PO CAPS 1 cap daily 0 Active carbidopa-levodopa CR 25-100 mg per tab (SINEMET CR) 25-100 MG TBCRIndications:RLS (restless legs syndrome) Take 1 Tab by mouth at bedtime as needed (Legs discomfort). 30 Tab 3 01/03/2016 Active rOPINIRole (REQUIP) 2 MG TabletIndications:RLS (restless legs syndrome) TAKE ONE TABLET BY MOUTH ONCE DAILY 90 Tab 0 02/13/2016 Active rOPINIRole (REQUIP) 0.5 MG TabletIndications:RLS (restless legs syndrome) TAKE ONE TABLET BY MOUTH ONCE DAILY IN ADDITION TO 2 MG 90 Tab 3 02/26/2016 Active modafinil (PROVIGIL) 200 MG TabletIndications:Hyp ersomnia, recurrent Take 1 Tab by mouth daily. 30 Tab 3 03/18/2016 Active Cholecalciferol (VITAMIN D) 2000 UNITS Capsule Take 2,000 Units by mouth daily. 0 Active spironolactone (ALDACTONE) 25 MG Tablet 1 Tablet in the morning. 0 Active torsemide (DEMADEX) 20 MG Tablet Take 0.5 Tablets by mouth in the morning. 0 01/14/2019 Active Naltrexone-buPROPion HCl ER 8-90 MG Oral Tablet Extended Release 12 Hour Take 2 Tabs by mouth 2 times a day. 0 07/25/2019 Active losartan (COZAAR) 50 MG TabletIndications:in am Take 1 Tablet by mouth in the morning. 30 Tab 5 12/23/2019 Active Nystatin 118416 UNIT/GM External Cream 0 07/18/2020 Active CPAP every night at bedtime . 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 4 Tablet 6 09/03/2022 Active Montelukast Sodium 10 MG Oral Tablet (Singulair) TAKE ONE TABLET BY MOUTH ONCE DAILY 90 Tablet 3 01/08/2023 Active Atorvastatin Calcium 40 MG Oral Tablet (Lipitor)Indications: Dyslipidemia TAKE ONE TABLET BY MOUTH ONCE DAILY 90 Tablet 3 04/16/2023 Active Pantoprazole Sodium 20 MG Oral Tablet Delayed Release (Protonix)Indications :Gastroesophageal reflux disease without esophagitis TAKE ONE TABLET BY MOUTH ONCE DAILY 90 Tablet 1 07/16/2023 Active Finasteride 5 MG Oral Tablet (Proscar)Indications: BPH with obstruction/lower urinary tract symptoms TAKE ONE TABLET BY MOUTH EVERY DAY IN THE MORNING. 90 Tablet 3 10/06/2023 Active Tolterodine Tartrate 2 MG Oral Tablet (Detrol) Take 1 Tablet by mouth in the morning and 1 Tablet before bedtime. 90 Tablet 3 11/09/2023 Active documented as of this encounter (statuses as of 12/11/2023) Active Problems Problem Noted Date Diagnosed Date Hypertensive heart disease w ith chronic diastolic congestive heart failure 12/29/2018 Pulmonary hypertension 11/30/2017 Asymptomatic cholelithiasis 01/25/2017 Vitamin D insufficiency 12/24/2016 Gastroesophageal reflux disease without esophagi tis 08/18/2016 Polyp of colon 08/07/2014 DVT prophylaxis 07/07/2014 ADVANCE DIRECTIVE INFORMATION 05/02/2014 Overview: No, Advance Directive brochure given to patient on November 28, 2005. . 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 LSC (lichen simplex chronicus) 08/16/2013 Candidal intertrigo 08/16/2013 Stasis edema 08/16/2013 Tricuspid regurgitation 07/01/2013 Mitral regurgitation 07/01/2013 Asthma, mild persistent 09/29/2011 Overview: PFT 03/04/13: normal Benign prostatic hyperplasia without lower urinary tract symptoms 06/15/2005 Overview: chr symptoms- improved on avodart and uroxatral Restless leg syndrome 10/19/2004 Overview: Following with Dr Delarosa, sleep clinic Dermatophytosis of groin 03/03/2002 Sleep apnea Overview: Wears c-pap at 5/11 cm [address] Delarosa, sleep clinic HTN, goal below 140/90 documented as of this encounter (statuses as of 12/11/2023) Resolved Problems Problem Noted Date Diagnosed Date Resolved Date Severe obesity (BMI 35.0-39. 9) with comorbidity 06/09/2018 12/27/2020 Overview: bmi 34.6 Acute on chronic congestive heart failure 01/25/2017 12/29/2018 Asthma with severity to be determined 04/11/2010 10/04/2012 Overview: Per Asthma Taxonomy ICD-10 update of inactive term Severe obesity with body mas s index (BMI) of 35.0 to 39.9 with serious comorbidity 01/14/2010 Overview: Per Obesity Taxonomy ICD-10 update of inactive diagnosis Dyslipidemia, goal to be determined 10/01/2009 05/02/2014 Overview: Per Lipid Taxonomy. Asthma, allergic 01/08/2009 04/11/2010 Trigger finger 11/14/2008 05/29/2017 Overview: Left middle finger, pt did not want referral yet. Obesity, BMI not known 05/01/200801/14 Overview: Per Obesity Taxonomy PURE HYPERCHOLESTEROLEM 06/16/200509/18 Overview: Per Lipid Taxonomy. Internal hemorrhoids 06/15/2005 017 Overview: on 09/2004- colonoscopy dr Cervantes Carpal tunnel syndrome 11/30/200310/19 Overview: Resolved thru surgery Anxiety states 10/19/1999 06/18/2015 Overview: ICD-10 update of inactive term documented as of this encounter (statuses as of 12/11/2023) Immunizations Name Administration Dates Next Due COVID-19 mRNA, LNP-s, No Pre serve, 2-Dose Series (Moderna) 12/17/2020,11/13/2020 COVID-19, mRNA, LNP-s, PF, B ooster, 100mcg/0.5mg (Moderna) 08/14/2021 Covid-19, Mrna, Lnp-s, Pf, B ivalent, 50 Mcg, IM, 12 yrs and above (Moderna) 06/29/2022 H1N1 2009 Influenza, IM 11/06/2009 Pneumococcal Conjugate Vacc, 13 Valent (Prevnar) 04/02/2015 Pneumococcal Polysaccharide PPV23 (Pneumovax) 05/29/2017,07/12/2009 Season Influenza, Quad, PF, Adjuvanted, 65+ Yrs, IM (FLUAD) 06/27/2020 Seasonal Influenza, PF, 6 M & above, IM , (FluLaval or Fluzone) 06/17/2023,06/29/2022,07/01/2019,08/20,09/02/2017 Seasonal Influenza, Quadriva lent Hd (Fluzone Hd) 07/03/2021 Seasonal Influenza, Quadriva lent, No Preserve, IM 09/24/2016,08/10/2015 Seasonal Influenza, Split, I IV3, With Preserve, Inj 07/25/2014,08/17/2013,07/01/2012,08/29,09/26/2010,07/12/2009,09/29/2008 TDAP (age 10 and older)(Boostrix) 04/11/2016 TDAP (age 11 and older)(Adacel) 09/26/2010 Varicella Zoster Vaccine (Adult) 04/06/2013 Zoster Vaccine Recombinant (Shingrix) 09/24/2021 ,04/30/2021 documented as of this encounter Social History Tobacco Use Types Packs/Day Years Used Date Smoking Tobacco: Never Smokeless Tobacco: Never Alcohol Use Standard Drinks/Week Comments Yes 0 (1 standard drink = 0.6 oz pur e alcohol) wine occasionally PHQ-2 Answer Date Recorded PHQ Adult Total Score 0 08/10/2023 Hunger Vital Sign Answer Date Recorded Within the past 12 months, y ou worried that your food would run out before you got the money to buy more. Never true 03/03/20 23 Within the past 12 months, t he food you bought just didn't last and you didn't have money to get more. Never true 03/03/2023 Sex and Gender Information Value Date Recorded Sex Assigned at Male 12/23/2019 7:00 AM EST Gender Identity Male 12/23/2019 7:00 AM EST Sexual Orientation Straight 12/23/2019 7: 00 AM EST Job Start Date Occupation Industry Not on file Not on file Not on file documented as of this encounter Functional Status Functional Status Response Date of Assess ment Are you deaf or do you have serious difficulty h earing? No 01/24/2017 Are you blind or do you have serious difficulty seeing, even when wearing glasses? No 01/24/2017 Do you have serious difficul ty walking or climbing stairs? (5 years old or older) No 01/24/2017 Do you have difficulty dress ing or bathing? (5 years old or older) No 01/24/2017 Because of a physical, menta l, or emotional condition, do you have difficulty doing errands alone such as visiting a doctor s office or shopping? (15 years old or older) No 01/25/20 17 Cognitive Status Response Date of Assessm ent Because of a physical, menta l, or emotional condition, do you have serious difficulty concentrating, remembering, or making decisions? (5 years old or older) No 01/24/2017 documented as of this encounter Miscellaneous Notes * Telephone Encounter - Yazmin Becerril MD - 12/11/2023 2:39 PM EST Please fax my note to Dr Damien arriola , orthopedic , knee surgeon documented in this encounter Plan of Treatment Upcoming Encounters Date Type Department Care Team (Late st Contact Info) Description 03/08/2024 8:20 AM EDT Office Visit [facility] [address] [place] [phone] Clyde White Jr., [address] [place] [address] 08/11/2024 9:30 AM EDT Nurse Only Ancillary 1st Floor, [place] [address] [place] [address] Yunior, Nurse Annual Wellness, RN [address] [place] [address] 08/29/2024 9:15 AM EST Office Visit Urology Yunior Kwon [address] [place] [address] Pardeep Neff Jr., MD [address] [place] [address] Health Maintenance Due Date Last Done Comments Albumin/Creatinine Ratio 12/13/2018 12/13/2015 COVID-19 Vaccine ( season) 2023 06/29/2022, 08/14/2021, 12/17/2020, Additional history exists Depression Screening 08/10/2024 08/10/2023 GFR 08/24/2024 08/24/2023, 05/0 02/2023, 08/27/2022, Additional history exists COLONOSCOPY-EVERY 3 YRS AGES 18-100 10/29/2024 10/29/2021, 10/29/2021, 09/02/2018, Additional history exists DTaP,Tdap,and Td Vaccines (3 - Td or Tdap) 04/11/2026 04/11/2016, 09/26/2010 Pneumococcal Vaccine: 65+ Years Completed 05/29/2017, 04/02/2015, 07/12/2009 Zoster Vaccines Completed 09/24/2021, 04/18, 04/06/2013 Influenza Vaccine (FLU shot) Completed , 06/29/2022, 07/03/2021, Additional history exists GARDASIL-HPV IMMUNIZATION SERIES Aged Out No longer eligible based on patient's age to complete this topic Hepatitis B Aged Out No longer eligi ble based on patient's age to complete this topic MENINGOCOCCAL (MENACTRA/MENVEO) Aged Out No longer eligible based on patient's age to complete this topic documented as of this encounter Medical Devices Implanted Type Area Health Care / Medical Job Titles Device Identifier Shelf Expiration Date Model / Serial / Lot Lens Intraoc 20.0 - [id number] - [id number] Implanted:Qty: 1 on 12/09/2021 by Varghese Nye MD at OR [facility] Left: Eye BAUSCH & LOMB 06/18/2026 [id number] / [id number] / [id number] Lens Intraoc 20.5 - [id number] - [id number] Implanted:Qty: 1 on 12/24/2021 by Varghese Nye MD at OR [facility] Right: Eye BAUSCH [employer] LOMB 06/18/2026 [id number] / [id number] / [id number] documented as of this encounter Advance Directives Latest Code Status on File Code Status Date Activated Date Inactivated Comments Full Code 01/24/2017 4:44 PM 01/25/2017 6:30 PM This or jocelyn reflects the patients wishes and were consensually agreed upon. Question Answer Comments Discussion of Advance Directives occurred with: Not Discussed Does the patient have a Living Will? Yes, not currently available Does the patient have Health Care Power of Edi Specialist? Yes, not currently available Code Status History Code Status Date Activated Date Inactivated Comments Full Code 08/07/2014 6:36 AM 08/12/2014 2:50 PM Question Answer Comments Discussion of Advance Direct bryan occurred with: Not Discussed Does the patient have a Living Will? No Does the patient have Health Care Power of Edi Specialist? No Care Teams Product Support Sales Representative Relationship Specialty Start Date End Date Clyde White Jr., DO [address] [place] [address] PCP - General Family Medicine 06/22/20 documented as of this encounter
--- OUTSIDE RECORDS SUMMARY | 2023-12-14 10:35 | External Medical Summary | Summary of Care ---
Author Name Unknown Organization [facility] Address [address] [facility] [place] [address] Phone [phone] Care Team Providers Care Leak Gang Supervisor Name Role Phone Christopher Vicente DO, David Vincent Primary Care Provid er Encounter Details Date Type Department Care Team (Late st Contact Info) Description 12/11/[address] [facility] [address] [place] [address] Yazmin Becerril MD [address] [place] [address] Allergies Active Allergy Reactions Criticality [...] morning. 30 Tab 5 12/23/2019 Active Nystatin 656450 UNIT/GM External Cream 0 07/18/2020 Active CPAP [...] encounter Miscellaneous Notes * Telephone Encounter - Solange Munroe OSA - 12/11/2023 3:14 PM EST Faxed. 12/11/2023 * Telephone Encounter - Yazmin Becerril MD - 12/11/2023 2:39 PM EST Please fax my note to Dr Damien arriola , orthopedic , knee surgeon documented in this encounter Plan of Treatment Upcoming Encounters Date Type Department Care Team (Late st Contact Info) Description 03/08/2024 8:20 AM EDT Office Visit [facility] [address] [place] [phone] Christopher Vicente, Clyde Garcias, DO [address] [place] [address] 08/11/2024 9:30 AM EDT Nurse Only Ancillary 1st Floor, [place] [address] [address] [phone] Yunior Nurse Annual Wellness, RN [address] [place] [address] 08/29/2024 9:15 AM EST Office Visit Urology Yunior Kwon [address] [place] [address] Pardeep Neff Jr., MD [address] [place] [address] [place] [address] Health Maintenance Due Date Last Done Comments Albumin/Creatinine Ratio 12/13/2018 12/13/2015 COVID-19 Vaccine (2022- season) 2023 06/29/2022, 08/14/2021, 12/17/2020, Additional history [...] this encounter Medical Devices Implanted Type Area Display And Banner Designer Device Identifier Shelf Expiration Date Model / Serial / Lot Lens Intraoc 20.0 - [id number] - [id number] Implanted:Qty: 1 on 12/09/2021 by Varghese Nye MD at OR [facility] Left: Eye BAUSCH & LOMB 06/18/2026 [id number] / [id number] / [id number] Lens Intraoc 20.5 - [id number] - [id number] Implanted:Qty: 1 on 12/24/2021 by Varghese Nye MD at OR [facility] Right: Eye BAUSCH & LOMB 06/18/2026 [id number] / [id number] / [id number] documented as of this encounter Advance Directives [...] the patient have Health Care Power of Telecommunication Equipment Repairer? Yes, not currently available Code Status History Code Status Date Activated Date Inactivated Comments Full Code 08/07/2014 6:36 AM 08/12/2014 2:50 PM Question Answer Comments Discussion of Advance Direct bryan occurred with: Not Discussed Does the patient have a Living Will? No Does the patient have Health Care Power of Telecommunication Equipment Repairer? No Care Teams Leak Gang Supervisor Relationship Specialty Start Date End Date Clyde White Jr., DO [address] [place] [phone] PCP - General Family Medicine 06/22/20 documented as of this encounter
--- OUTSIDE RECORDS SUMMARY | 2023-12-14 10:35 | External Medical Summary | Summary of Care ---
Author Name Unknown Organization [facility] Address [address] [facility] [address] Phone [phone] Care Team Providers Care Valet Parker Name Role Phone Christopher Vicente DO, David Vincent Primary Care Provid er Encounter Details Date Type Department Care Team (Latest Contact Info) Description 12/11/2023 2:20 PM EST Telemedicine [facility] [address] [place] [address] Yazmin Becerril MD [address] [place] [address] Rash and nonspecific skin eruption*; Risk and functional assessment; Candidal intertrigo; Primary osteoarthritis of right knee Allergies Active Allergy Reactions Criticality Noted Date [...] morning. 30 Tab 5 12/23/2019 Active Nystatin 238614 UNIT/GM External Cream 0 07/18/2020 Active CPAP [...] Date Smoking Tobacco: Never Smokeless Tobacco: Never Tobacco Cessation:Counseling Given: Not Answered Alcohol Use Standard Drinks/Week Comments Yes 0 [...] No 01/24/2017 documented as of this encounter Patient Instructions * Patient Instructions* Nancy Lambert LPN - 12/11/2023 2:11 PM EST Patient Instructions - Fall Prevention (This education is for all patients over 65 regardless of symptoms) Remember to take your current medications as prescribed. In order to prevent falls, you are encouraged to: Exercise Utilize assistive/adaptive devices Avoid multifocal lenses when walking Avoid hazards in home Maintain a regular toileting schedule Any questions please contact our office. Preventing Falls in the Home (This education is for all patients over 65 regardless of symptoms) As you get older, falls are more likely. Thats because your reaction time slows. Your muscles and joints may also get stiffer, making them less flexible. Illness, medications, and vision changes can also affect your balance. A fall could leave you unable to live on your own. To make your home safer, follow these tips: Floors Put nonskid pads under area rugs Remove throw rugs Replace worn floor coverings Tack carpets firmly to each step on carpeted stairs. Put nonskid strips on the edges of uncarpeted stairs Keep floors and stairs free of clutter and cords Arrange furniture so there are clear pathways Clean up any spills right away Bathrooms Install grab bars in the tub or shower Apply nonskid strips or put a nonskid rubber mat in the tub or shower Sit on a bath chair to bathe Use bathmats with nonskid backing Lighting Keep a flashlight in each room Put a nightlight along the pathway between the bedroom and the bathroom Chaunceyjimmy Patient Education Copyright 2008 - 2010 Suzanna except where otherwise noted Preventing Falls: Exercises to Improve Balance, Flexibility, Strength, and Staying Power (This education is for all patients over 65 regardless of symptoms) Certain types of exercises may help make you less likely to fall. Try the ones below. Or do other exercises that your healthcare provider suggests. Depending on your health, you may need to start slowly. Dont let that stop you. Even small amounts of exercise can help you. Be sure to talk to yourhealthcare provider before starting any exercise program. Improve Balance Many types of exercise can help improve balance. Delta chi and yoga are good examples. Heres another one to try. You can do it anytime and almost anywhere. Stand next to a counter or solid support. Push yourself up onto your tiptoes. Hold for 5 seconds. If you start to lose your balance, hold on to the counter. Rest and repeat 5 times. Work up to holding for 20 to 30 seconds, if you can. Increase Flexibility Being more flexible makes it easier for you to move around safely. Try exercises like the seated hamstring stretch. Sit in a chair and put one foot on a stool. Straighten your leg and reach with both hands down either side of your leg. Reach as far down your leg as you can. Hold for about 20 seconds. Go back to the starting position. Then repeat 5 times. Switch legs. Build Strength Resistance exercises help build strength. You can do them without equipment. Or you can use weights, elastic bands, or special machines. One such exercise is called the biceps curl. You can hold a 1 pound weight or even a can of soup. Do this exercise at least 3 times a week. Strive for everyday. Sit up straight in a chair. Keep your elbow close to your body and your wrist straight. Bend your arm, moving your hand up to your shoulder. Then slowly lower your arm. Repeat 5 times. Switch to the other arm. Build Your Staying Power Aerobic exercises make your heart and lungs stronger so you can keep moving longer. Walking and swimming are two of the best types of exercises you can do. Using a stationary bike is great, too. Find an aerobic exercise that you enjoy. Start slowly and build up. Even 5 minutes is helpful. Aimfor a goal of 30 minutes, at least 3 times a week. You dont have to do 30 minutes in one session. Break it up and walk a little throughout the day. More Helpful Tips Start easy. Slowly work up to doing more. Talk with your healthcare provider about the best exercises for you. Call senior centers or health clubs about exercise programs. If needed, have a family member watch you walk every so often to check your stability. Exercise with a friend. Choose an activity you both enjoy. Try exercises that you can do anytime, anywhere. Here are two examples. Have someone with you when you first try these: Practice walking by placing one foot right in front of the other. Stand up and sit down 10 times. Repeat this throughout the day. Suzanna Patient Education Copyright 2009 - 2010 Suzanna except where otherwise noted. Preventing Falls: Moving Safely Using a Cane or Walker (This education is for all patients over 65 regardless of symptoms) Keep the cane away from your feet so you dont trip. A walking aid, such as a cane or walker, can help you stay more independent and avoid falls. Remember to keep your walking aid within easy reach when youre in a chair or in bed. And learn how to use it safely so you dont injure yourself. Using a Cane If you have a stronger side, hold the cane on that side. Get your balance. Move the cane and your weaker leg forward. Support your weight on both the cane and your weaker side. Step with your stronger leg. Start again from step 1. If youre using a folding walker, be sure you know how to lock it open. Check that its locked open before each use. Using a Walker Roll the walker (or lift it, if youre using one without wheels) forward about 12 inches. Step forward with your weaker leg first. Use the walker to help keep your balance. Bring your other foot forward to the center of the walker. Start again from step 1. Helpful Tips Check with your healthcare provider about the right walking aid to use. Ask about a walker with a seat attached. Check the tips of your cane or walker to make sure they have nonskid covers. Move slowly from room to room. Dont oliver. Sit down to get dressed. Use a savita pack or backpack to keep your hands free. Get help for jobs that mean climbing, even on a stepstool. Suzanna Patient Education Copyright 2008 - 2010 Suzanna except where otherwise noted. Treating Urinary Incontinence in Men (This education is for all patients over 65 regardless of symptoms) You can't always control the release of urine. You may leak urine. Or you may not be able to hold your urine until you can get to a bathroom. This is called urinary incontinence. The problem can be managed. Talk to your doctor about your treatment options. Taking Medications Prescription medications may help you. They may: Help the sphincter to work better. (This is the muscle that closes to keep urine from leaking out of the bladder.) Help stop the bladder from reyna too often to push urine out. Help the bladder muscles contract with more force. Help relax the sphincter muscle and allow urine to flow more freely. Making Changes to Your Routine Certain changes in your daily routine may help. These include: Avoiding caffeine and alcohol. Using timed voiding. This is following a schedule for drinking fluids and urinating. Doing Kegel exercises daily. These exercises involve tightening the muscles in your sphincter and around your bladder to help strengthen them. Your doctor can explain how to do them. Using a Catheter A catheter is a narrow tube that is inserted through the urethra into the bladder. It drains urine.A condom catheter covers the penis. It channels urine into a collection bag. It is worn most of thetime. Intermittent catheterization means inserting a catheter to drain the bladder, then removing it. This is done on a regular schedule. Having Surgery If other options don't work, surgery may be recommended. If surgery is an option, your healthcare provider can discuss it with you and explain its risks and benefits. Healing After Prostate Surgery Surgery on the prostate gland can cause incontinence. Most often, the incontinence is only for a short time. It clears up when healing is complete. Very rarely, prostate surgery can result in permanent incontinence. documented in this encounter Progress Notes * Yazmin Becerril MD - 12/11/2023 2:32 PM EST Images from the original note were not included. Subjective David Shaw IV is a 73 year old male. No chief complaint on file. HPI: Patient location: HOME. I was in a hospital or clinic location. After connecting through [employer],patient was verified with two unique identifiers. Patient (or authorized legal care support representative) was then informed that this was a Telemedicine visit and being conducted confidentially over secure lines. Methods to assure confidentiality were taken. Patient acknowledged consent and understanding of pr ivacy and security of the Telemedicine visit. The patient agreed to participate. Here to discuss about rt knee rash , He has had rash issue off and on Is scheduled for rt knee surgery on Thursday by Dr rebeca arriola Concerned if he needs to postponed Was wearing supporter for his knee, looks like mild fungal rash He has clotrimazole cream which I advised to start using it And keep rash open , airy, no cover And ok to get surgery as scheduled PMH: Patient Active Problem List Diagnosis Code Dermatophytosis of groin B35.6 Benign prostatic hyperplasia without lower urinary tract symptoms N40.0 ADVANCE DIRECTIVE INFORMATION Sleep apnea G47.30 HTN, goal below 140/90 I10 Restless leg syndrome G25.81 Asthma, mild persistent J45.30 Tricuspid regurgitation I07.1 Mitral regurgitation I34.0 Neoplasm of uncertain behavior of skin D48.5 LSC (lichen simplex chronicus) L28.0 Candidal intertrigo B37.2 Stasis edema I87.309 Cardiovascular disease I25.10 Dyslipidemia E78.5 DVT prophylaxis Z79.899 Polyp of colon K63.5 Gastroesophageal reflux disease without esophagitis K21.9 Vitamin D insufficiency E55.9 Asymptomatic cholelithiasis K80.20 Pulmonary hypertension (HCC) I27.20 Hypertensive heart disease with chronic diastolic congestive heart failure (HCC) I11.0, I50.32 Current Outpatient Medications Medication Sig Dispense Refill ASPIRIN 81 MG PO TABS one tablet daily LUTEIN 20 MG PO TABS daily VITAMIN C 500 MG PO TABS Take 1 Tablet by mouth in the morning and 1 Tablet before bedtime. COREG 12.5 MG PO TABS twice a day MAGNESIUM 400 MG PO CAPS 1 cap daily carbidopa-levodopa CR 25-100 mg per tab (SINEMET CR) 25-100 MG TBCR Take 1 Tab by mouth at bedtime as needed (Legs discomfort). 30 Tab 3 rOPINIRole (REQUIP) 2 MG Tablet TAKE ONE TABLET BY MOUTH ONCE DAILY 90 Tab 0 rOPINIRole (REQUIP) 0.5 MG Tablet TAKE ONE TABLET BY MOUTH ONCE DAILY IN ADDITION TO 2 MG 90 Tab 3 modafinil (PROVIGIL) 200 MG Tablet Take 1 Tab by mouth daily. 30 Tab 3 Cholecalciferol (VITAMIN D) 2000 UNITS Capsule Take 2,000 Units by mouth daily. spironolactone (ALDACTONE) 25 MG Tablet 1 Tablet in the morning. torsemide (DEMADEX) 20 MG Tablet Take 0.5 Tablets by mouth in the morning. Naltrexone-buPROPion HCl ER 8-90 MG Oral Tablet Extended Release 12 Hour Take 2 Tabs by mouth 2 times a day. losartan (COZAAR) 50 MG Tablet Take 1 Tablet by mouth in the morning. 30 Tab 5 Nystatin 270312 UNIT/GM External Cream CPAP every night at bedtime . Triamcinolone Acetonide 0.5 % External Cream Apply to legs once or twice daily as needed for [id number] g 5 Tadalafil 20 MG Oral Tablet (Cialis) Take 1 Tablet (20 mg) by mouth as needed for Erectile Dysfunction. 4 Tablet 6 Montelukast Sodium 10 MG Oral Tablet (Singulair) TAKE ONE TABLET BY MOUTH ONCE DAILY 90 Tablet 3 Atorvastatin Calcium 40 MG Oral Tablet (Lipitor) TAKE ONE TABLET BY MOUTH ONCE DAILY 90 Tablet 3 Pantoprazole Sodium 20 MG Oral Tablet Delayed Release (Protonix) TAKE ONE TABLET BY MOUTH ONCE DAILY 90 Tablet 1 Finasteride 5 MG Oral Tablet (Proscar) TAKE ONE TABLET BY MOUTH EVERY DAY IN THE MORNING. 90 Tablet3 Tolterodine Tartrate 2 MG Oral Tablet (Detrol) Take 1 Tablet by mouth in the morning and 1 Tablet before bedtime. 90 Tablet 3 No current facility-administered medications for this visit. Past Medical History: Diagnosis Date Acute on chronic congestive heart failure (HCC) 01/25/2017 Asthma Carpal tunnel syndrome Coronary atherosclerosis of [place] coronary artery Coronary Artery Disease ([place]) HEMORRHOIDS, INTERNAL W/O COMPLICATIONS 06/15/2005 on 09/2004- colonoscopy dr Cervantes HTN, goal to be determined HYPERTROP PROSTATE W/O URIN OB 06/15/2005 chr symptoms- improved on avodart and uroxatral Other and unspecified hyperlipidemia Hypercholesterolemia Restless leg syndrome 2003- om mirapax Severe obesity (BMI 35.0-39.9) with comorbidity (HCC) 06/09/2018 bmi 34.6 Sleep apnea Past Surgical History: Procedure Laterality Date ARTHROPLASTY KNEE TOTAL CARPAL TUNNEL SURGERY february 2004 bilateral COLONOSCOPY, DIAGNOSTIC (RECTUM) 06/01/2014 hyperplastic polyps, refer to surgeon. repeat in 1 yr/COLONOSCOPY FLEXIBLE PROXIMAL DIAGNOSTIC performed by Orlin Shrestha MD at ENDOSCOPY [facility] COLONOSCOPY, DIAGNOSTIC (RECTUM) N/A 09/06/2015 COLONOSCOPY FLEXIBLE PROXIMAL DIAGNOSTIC performed by Romina Silverman MD at ENDOSCOPY [facility] COLONOSCOPY, DIAGNOSTIC (RECTUM) N/A 10/02/2016 COLONOSCOPY FLEXIBLE PROXIMAL DIAGNOSTIC performed by Sinan Stuart MD at ENDOSCOPY [facility] COLONOSCOPY, DIAGNOSTIC (RECTUM) N/A 09/17/2017 two 4-6 mm polyps transverse colon, removed; COLONOSCOPY FLEXIBLE PROXIMAL DIAGNOSTIC performed by Sinan Stuart MD at ENDOSCOPY [facility] COLONOSCOPY, DIAGNOSTIC (RECTUM) N/A 09/02/2018 COLONOSCOPY FLEXIBLE PROXIMAL DIAGNOSTIC performed by Sinan Stuart MD at ENDOSCOPY [facility] COLONOSCOPY, DIAGNOSTIC (RECTUM) N/A 10/29/2021 COLONOSCOPY FLEXIBLE PROXIMAL DIAGNOSTIC performed by Sinan Stuart MD at ENDOSCOPY [facility] CYSTOSCOPY 01/07/2005 [facility] CYSTOSCOPY 11/28/2008 CYSTOSCOPY 10/28/2011 CYSTOSCOPY 12/03/2011 under anesthesia [facility] LAPAROSCOPIC COLECTOMY PARTIAL WITH ANASTOMOSIS 08/07/2014 LAPAROSCOPIC COLECTOMY PARTIAL WITH ANASTOMOSIS performed by Romina Silverman MD at OR [facility] PROSTATE, LASER COAG 12/06/2008 REMOVAL OF TONSILS, AGE 12+ 2000 plus some soft pallette REMOVAL OF UVULA 1999 REMOVE CATARACT, INSERT LENS PROSTH Left 12/09/2021 EXTRACAPSULAR CATARACT REMOVAL WITH INTRAOCULAR LENS performed by Varghese Nye MD at OR [facility] REMOVE CATARACT, INSERT LENS PROSTH Right 12/24/2021 EXTRACAPSULAR CATARACT REMOVAL WITH INTRAOCULAR LENS performed by Varghese Nye MD at OR [facility] REPAIR INITIAL INGUINAL HERNIA REDUCIBLE AGE 5 OR MORE 1994 UMBIL HERNIA REPAIR (REDUCIBLE) AGE 5+YR 08/07/2014 REPAIR UMBILICAL HERNIA AGE 5 AND OVER performed by Romina Silverman MD at OR [facility] Review of patient's allergies indicates: Allergen Reactions Amoxicillin rash Lisinopril Cough Family History Problem Relation Age of Onset Stroke Mother Heart Disorder Mother Other (Other) Mother Scleroderma Arthritis Father Heart Disorder Father Diabetes Sister Diabetes Grandmother (Maternal) Diabetes Uncle (Unspecified) Asthma Sister Family Status Relation Status Mo at age 77 Stroke Fa at age 70's Heart failure Sis (Not Specified) MGMA (Not Specified) UNCLE (Not Specified) Sis (Not Specified) Social History Socioeconomic History Marital status: Spouse name: Not on file Number of children: 2 Years of education: Not on file Highest education level: Not on file Occupational History Occupation: Retired Tobacco Use Smoking status: Never Smokeless tobacco: Never Vaping Use Vaping Use: Never used Substance and Sexual Activity Alcohol use: Yes Comment: wine occasionally Drug use: No Sexual activity: Yes Partners: Female Other Topics Concern Service Not Asked Blood Transfusions Not Asked Caffeine Concern Not Asked Occupational Exposure Not Asked Hobby Hazards Not Asked Sleep Concern Not Asked Stress Concern Not Asked Weight Concern Yes Special Diet Not Asked Back Care Not Asked Exercise Not Asked Bike Helmet Not Asked Seat Belt Not Asked Self-Exams Not Asked Social History Narrative Not on file Social Determinants of Health Financial Resource Strain: Not on file Food Insecurity: No Food Insecurity (03/03/2023) Hunger Vital Sign Worried About Running Out of Food in the Last Year: Never true Ran Out of Food in the Last Year: Never true Transportation Needs: Not on file Physical Activity: Not on file Stress: Not on file Social Connections: Not on file Intimate Partner Violence: Not on file Housing Stability: Not on file Review of Systems Constitutional: Negative for activity change, appetite change, chills, diaphoresis, fatigue, fever and unexpected weight change. Musculoskeletal: Positive for arthralgias (rt knee), gait problem and joint swelling. Skin: Positive for rash (rt knee area). Psychiatric/Behavioral: Negative for agitation and behavioral problems. Objective There were no vitals taken for this visit. Physical Exam Constitutional: General: He is not in acute distress. Appearance: Normal appearance. He is obese. He is not ill-appearing, toxic- appearing or diaphoretic. HENT: Head: Normocephalic and atraumatic. Nose: Nose normal. Eyes: Extraocular Movements: Extraocular movements intact. Musculoskeletal: Legs: Skin: Findings: Rash present. Neurological: Mental Status: He is alert and oriented to person, place, and time. Psychiatric: Behavior: Behavior normal. ASSESSMENT/PLAN: Rash and nonspecific skin eruption (Primary) Risk and functional assessment Candidal intertrigo Primary osteoarthritis of right knee Ok to use clotrimazole cream And keep knee skin open air No brace or supporter now Yazmin Becerril MD documented in this encounter Plan of Treatment Upcoming Encounters Date Type Department Care Team (Late st Contact Info) Description 03/08/2024 8:20 AM EDT Office Visit [facility] [address] [place] [address] Christopher Vicente, Clyde Garcias DO [address] [place] [address] 08/11/2024 9:30 AM EDT Nurse Only Ancillary 1st Floor, [place] [address] [address] [place], Nurse Annual Wellness, RN [address] [place] [id number] 08/29/2024 9:15 AM EST Office Visit Urology Yunior Kwon [address] [place] [address] [place] [address] Pardeep Neff Jr., MD [address] [place] [address] [place] [address] Health Maintenance Due Date Last Done Comments [...] this encounter Medical Devices Implanted Type Area Bibliographic Services Specialist Device Identifier Shelf Expiration Date Model / Serial / Lot Lens Intraoc 20.0 - [id number] - [id number] Implanted:Qty: 1 on 12/09/2021 by Varghese Nye MD at OR [facility] Left: Eye [employer] 06/18/2026 [id number] / [id number] / [id number] Lens Intraoc 20.5 - [id number] - [id number] Implanted:Qty: 1 on 12/24/2021 by Varghese Nye MD at OR [facility] Right: Eye [employer] 06/18/2026 [id number] / [id number] / [id number] documented as of this encounter Visit Diagnoses Diagnosis Rash and nonspecific skin eruption- Primary Rash and other nonspecific skin eruption Risk and functional assessment Screening for unspecified condition Candidal intertrigo Candidiasis of skin and nails Primary osteoarthritis of right knee Primary localized osteoarthrosis, lower leg documented in this encounter Advance Directives Latest Code Status [...] the patient have Health Care Power of Seismograph Operator? Yes, not currently available Code Status History Code Status Date Activated Date Inactivated Comments Full Code 08/07/2014 6:36 AM 08/12/2014 2:50 PM Question Answer Comments Discussion of Advance Direct bryan occurred with: Not Discussed Does the patient have a Living Will? No Does the patient have Health Care Power of Seismograph Operator? No Care Teams Valet Parker Relationship Specialty Start Date End Date Christopher Vicente, Clyde Garcias DO [address] [place] [address] PCP - General Family Medicine 06/22/20 documented as of this encounter
[2023-12-14] MEDS: ceFAZolin 2000MG 2,000 MG/15 ML SYR IV SCH ×2 (10:50→18:08)
[2023-12-14] MEDS ORDERED: HYDROmorphone INJ 1 MG/ML SYRINGE IV PRN (10:59)
[2023-12-14] MEDS ORDERED: ePHEDrine sulfate 50 MG/ML AMP IV PRN (10:59)
[2023-12-14] MEDS ORDERED: ATROPINE SULFATE 0.1 MG/ML 10ML SYR IV PRN (10:59)
[2023-12-14] MEDS ORDERED: PROMETHAZINE HCL 6.25 MG in SODIUM CHLORIDE 0.9% 50 ML IV PRN (10:59)
[2023-12-14] MEDS: TRANEXAMIC ACID 1,000 MG **IV Intra-op IV SCH (11:49)
[2023-12-14] MEDS: VANCOMYCIN HCL 1000MG/20ML VIAL ONE (11:57)
[2023-12-14] MEDS: ORTHO JOINT ANESTHETIC ONE (11:57)
[2023-12-14] MEDS: ROPIVACAINE 0.5% HCL/PF 246 MG, Ketorolac (*for OR use only*) 30 MG, EPINEPHrine 30MG/3... INFIL SCH (11:57)
--- NOTE | 2023-12-14 12:44 | Operative Report ---
PG Post Operative Report Pre & Post Diagnosis Operation Date: 12/14/23 10:40 Pre-Op Diagnosis: Right Knee Dejenerative Joint Disease Post-Op Diagnosis: Right Knee Dejenerative Joint Disease I identified the patient and participated in the time-out.: Yes Procedure Operation Date: 12/14/23 10:40 Actual Procedures p Right Total Knee Arthroplasty(Right) - Damien Flores MD Surgeon Damien Flores MD Home Health Rn Bowen Kirby Estimated Blood Loss 100 Findings Consistent with Post-Op Diagnosis Operative findings reveal advanced right knee medial and patellofemoral compartment arthritis. Grade 4 [id number] disease of the medial and patellofemoral compartments. Not much in the way of osteophyte formation. Moderate-sized joint effusion. Slight varus deformity to his knee. Specimens Right knee symptomatology. Anesthesia Type Spinal MAC Complications none Disposition Accompanied Patient To Recovery: No Indications Patient is 73-year-old fairly active gentleman whose had a long history of knee problems. Has been through extensive conservative care which became less successful over time. He had his left knee replaced just about 2 years ago and is done pretty well with this. Continued be limited by right knee pain. X-rays show advanced medial compartment arthritis. He elected proceed with total knee arthroplasty. Description of Procedure Operative implants consist of: 1 Biomet Vanguard size 70 right posterior stabilized femoral component. 2. Biomet size 71 tibial tray. 3. 12 mm posterior stabilized polyethylene insert. 4. 31 x 8 all poly patella. The patient was taken to the op room, identified, placed on the operating table in the supine position but all contact areas were appropriately padded IV antibiotics tried by anesthesia team. Spinal anesthetic and adductor canal block had been divided in the holding area. A right Tetrick was then placed. The right lower extremity was then prepped and draped in usual sterile fashion. The right leg was elevated exsanguinated with use of an Esmarch and the turn was placed at 300 mmHg. An anterior approach to the right knee was then performed through a longitudinal incision centered over the patella. Sharp dissection carried through subcutaneous tissue down the extensor mechanism. He did have a well-formed bursa with some blood and it fell over his kneecap area which I did excise. We did not send this for pathology. A medial parapatellar arthrotomy incision was made. Some subperiosteal dissection was carried out medially. The fat pad was resected from Neath patella tendon. The lateral patellofemoral ligament was released. Patella subluxated laterally and the knee was flexed. The osteophytes taken on distal femur. ACL PCL then released from distal femur and the tibia subluxated anteriorly. The external tibial alignment jig was then placed in the interface the tibia and adjusted 14 mm medially. Proximal tibial cut was made to take about 3 to 4 mm of bone from the medial side. He did not have a lot of bony wear. The tibia sized to a size 71. Attention drawn the femur. The distal femur examined the sharp drill. Intramedullary canal was suction. Right 6 degree valgus cutting guide was placed through the distal femoral cutting block was pinned in place. Distal femoral cut was made to take an additional 3 mm of bone off distal femur. The femur was then sized to a size 70. The AP cutting block was pinned parallel to the epicondylar axis which was 3 degrees of external rotation. The anterior cut, anterior chamfer, posterior cut, posterior chamfer cuts were made. The box cutting guide was placed in just slight lateral and the box cut was made. The knee was flexed. The remnants of the medial and lateral menisci were excised. The osteophytes taken off the posterior aspect the femur. A trial femoral component was placed. The tibial tray was pinned Kinga external rotation and the drill and stem punch used to create defect in proximal tibia for the tibial tray. The knee was then trialed a 12 mm insert fit most appropriately. Attention drawn the patella. The patella was cleaned of all soft tissues. Patella thickness measured about 18 mm in thickness was cut down to 12. Was sized to a size 31 patella. The lug holes were drilled for 31 patella. The lateral osteophytes removed. Patella button was placed. Knee was taken through range of motion and the patella tracked nicely with no thumbs test. Attention drawn to place a permanent components. All trial components were removed. Bone plug was placed in the distal femur limit blood loss. Double batch Palacos G cement was mixed. I did add an additional gram of vancomycin due to his history of unspecified dermatitis in his legs. A Biomet Vanguard size 70 right Po stabilized femoral component, size 71 tibial tray, a 12 mm post stabilized polyethylene insert, and a 31 x 8 all poly patella then cemented in place. Knee was brought out into full extension till cement hardened. Final cement check was then performed. The pericapsular tissues were injected with total 100 cc of combination of 20 cc of Exparel, 30 cc normal saline, 50 cc of quarter percent Marcaine with epinephrine. Patient did receive 1 g of tranexamic acid. The tourniquet was then let down for final tourniquet time 55 minutes. Hemostasis assured use electrocautery. Extensor Meclomen closed with combination 1 PDS suture #1 Vicryl suture in a [id number] fashion. Extensor Meclomen checked found to be intact with subcutaneous tissues then closed with 2 Dexon suture in a buried interrupted fashion skin was closed skin rené. Leg was then cleaned and dried and sterile dressing was Xeroform, 4 fours, sterile cast padding, Ruslan bandage were applied. Patient then transferred to the recovery room in stable condition. Patient tolerated procedure well and there were no complications. Bowen Kirby, my physician vet assistant, was present for the entire procedure. His assistance was essential and required for appropriate patient positioning, prepping and draping, surgical exposure, performing the technical details of the operation, placement the implants, closure of the wound, and placement of the sterile bandage. I attest to the content of the Intraoperative Record and any orders documented therein. Any exceptions are noted below.
--- NOTE | 2023-12-14 13:04 | XRay Report ---
TWO VIEWS RIGHT KNEE CLINICAL HISTORY: Postoperative examination. FINDINGS: AP and crosstable lateral portable views of the right knee are obtained. A right knee arthr oplasty is in near anatomic alignment. There has been undersurface remodeling of the patella. No acut e fracture is seen. There are expected postoperative changes around the knee including skin clips, so ft tissue edema, and subcutaneous gas. IMPRESSION: Expected postoperative changes status post right knee arthroplasty. No acute fracture is seen. ACT 112: Negative or not required by law. Electronically signed by: Denilson Reed M.D. 12/14/2023 1:03 PM
--- NOTE | 2023-12-14 13:33 | Anesthesiology Progress Note ---
Date of Service December 14, 2023 Anesthesia Post Procedure Vital Signs Vital Signs: Temp Pulse Resp BP Pulse Ox O2 Del Method O2 Flow Rate 12/14/23 13:20 67 12 126/87 97 Room Air 12/14/23 13:10 71 14 119/67 97 Oxymask 3 12/14/23 13:00 36.2 C L 67 14 110/78 97 Oxymask 5 12/14/23 09:45 36.5 C 62 20 128/67 99 Room Air Pain Intensity Right Knee: Pain Intensity: 0 Transfer of Care Handoff Completed per policy Notes Mental Status: alert / awake / arousable and participated in evaluation Nausea / Vomiting: adequately controlled Pain: adequately controlled Airway Patency, RR, SpO2: stable & adequate BP & HR: stable & adequate Hydration State: stable & adequate Neuraxial Anesthesia: was administered and sensory block is resolving Anesthetic Complications: no major complications apparent and Pt Satisfied with anesthetic care
[2023-12-14] MEDS ORDERED: NALOXONE HCL 0.4 MG/1 ML VIAL/CARP IV PRN (13:58)
[2023-12-14] MEDS ORDERED: modafiniL 100 MG TAB PO PRN (13:58)
[2023-12-14] MEDS ORDERED: MAGNESIUM HYDROXIDE SUSP 30 ML UDC PO PRN (13:58)
[2023-12-14] MEDS ORDERED: ONDANSETRON INJ 2 MG/ML 2 ML VIAL IV PRN (13:58)
[2023-12-14] MEDS ORDERED: HYDROmorphone INJ 0.5 MG/0.5 ML SYR IV PRN (13:58)
[2023-12-14] MEDS ORDERED: CARBIDOPA/LEVODOPA 25/100MG EXT REL TAB PO PRN (13:58)
[2023-12-14] MEDS ORDERED: ALUMINUM/MAGNESIUM SUSP 30 ML UDC PO PRN (13:58)
[2023-12-14] MEDS ORDERED: bisacodyL 10 MG SUPP PR PRN (13:58)
[2023-12-14] MEDS ORDERED: NYSTATIN CR 15 GM TUBE EXT PRN (13:58)
[2023-12-14] MEDS ORDERED: METOCLOPRAMIDE HCL INJ 5 MG/ML 2 ML VIAL IV PRN (13:58)
[2023-12-14] MEDS ORDERED: TRIAMCINOLONE ACET 0.1% CR 15 GM TUBE TOP PRN (13:58)
[2023-12-14] MEDS ORDERED: ePHEDrine sulfate 50 MG/ML AMP ONE (14:00)
[2023-12-14] MEDS ORDERED: PROPOFOL IV EMULSION 10 MG/ML 100 ML VIAL IV ONE (14:00)
[2023-12-14] MEDS: KETOROLAC TROMETHAMINE 15 MG/ML VIAL IV SCH (15:02)
[2023-12-14] MEDS: CYANOCOBALAMIN (B-12) 2,500 MCG TABLET PO SCH (15:03)
[2023-12-14] MEDS: ASCORBIC ACID 500 MG TAB PO SCH (16:54)
[2023-12-14] MEDS: SODIUM CHLORIDE 0.9% 1,000 ML IV SCH (16:55)
[2023-12-14] MEDS: carvediloL 12.5 MG TAB PO SCH (16:55)
[2023-12-14] MEDS: TRANEXAMIC ACID / 0.7% NACL 1,000 MG/100 ML BAG IV SCH (18:08)
[2023-12-14] MEDS: oxyCODONE HCL IR 5 MG TAB (IMMEDIATE RELEASE) PO PRN (18:31)
[2023-12-14] MEDS: MAGNESIUM OXIDE 400 MG TAB PO SCH (20:11)
[2023-12-14] MEDS: ATORVASTATIN 40 MG TAB PO SCH (20:11)
[2023-12-14] MEDS: SENNA 8.6 MG TAB PO SCH ×2 (20:11→20:12)
[2023-12-14] MEDS: rOPINIRole HCL 0.25 MG TABLET PO SCH (20:11)
[2023-12-14] MEDS: rOPINIRole HCL 1 MG TABLET PO SCH (20:11)
[2023-12-14] MEDS: DOCUSATE SODIUM 100 MG CAP PO SCH (20:11)
[2023-12-14] MEDS: MONTELUKAST SODIUM 10 MG TABLET PO SCH (20:11)
[2023-12-14] MEDS: ASPIRIN 81 MG ECTAB PO SCH (20:11)
[2023-12-14] MEDS ORDERED: NON-FORMULARY MEDICATION (Naltrexone-Bupropion [Contrave] 8-90 mg tablet extended release) PO SCH (21:00)
[2023-12-14] MEDS ORDERED: NON-FORMULARY MEDICATION (Ascorbic Acid (Vitamin C) 500 mg capsule) PO SCH (21:00)
[2023-12-15 07:14] LABS: Hematocrit (blood only) 36.2 % (42.0-52.0); Hemoglobin 12.1 g/dl (14.0-18.0); Mean Corpuscular Hemoglobin 29.4 pg (25.0-34.0); Mean Corpuscular Hgb Conc 33.4 g/dL (32.0-36.0); Mean Corpuscular Volume 87.9 fL (80.0-100.0); Mean Platelet Volume 11.2 fL (9.4-12.4); Platelet Count 166 K/uL (130-400); RDW Coefficient of Variation 12.8 % (11.5-14.5); RDW Standard Deviation 41.1 fL (36.4-46.3); Red Blood Count 4.12 M/uL (4.70-6.10)
[2023-12-15 07:31] LABS: BUN Creatinine Ratio 37.9 (10-20); Calcium 8.2 mg/dl (8.6-10.3); Creatinine Clr Calc Pharmacy 117.9 ml/min; Est GFR (African American) 111.2 ml/min; Est GFR (Non-African American) 95.9 ml/min; Potassium 4.3 mmol/L (3.5-5.1)
[2023-12-15] MEDS: dexAMETHasone 10 MG in SYRINGE 0 ML IV SCH (08:45)
[2023-12-15] MEDS: SPIRONOLACTONE 25 MG TAB PO SCH (08:49)
[2023-12-15] MEDS: MULTIVITAMIN TAB PO SCH (08:49)
[2023-12-15] MEDS: FINASTERIDE 5 MG TAB PO SCH (08:50)
[2023-12-15] MEDS: LOSARTAN POTASSIUM 50 MG TAB PO SCH (08:50)
[2023-12-15] MEDS: CHOLECALCIFEROL 25 MCG (1000 UNITS) TAB PO SCH (08:50)
[2023-12-15] MEDS: PANTOprazole 40 MG TAB PO SCH (08:50)
[2023-12-15] MEDS: oxyBUTYnin chloride 5 MG TAB PO SCH (08:51)
[2023-12-15] MEDS: TORSEMIDE 10 MG TAB PO SCH (08:51)
[2023-12-15] MEDS: TAMSULOSIN HCL 0.4 MG CAP PO SCH (08:51)
--- NOTE | 2023-12-15 13:02 | Surgery Progress Note ---
Date of Service December 15, 2023 Assessment & Plan (1) Status post right knee replacement: Plan: 73-year-old gentleman postop day 1 from right knee replacement. He is doing reasonably well. Pain is reasonably well-controlled. He is neurologically intact. Not sure he is ready to go home yet. Plan: 1. PT/OT. Weight-bear as tolerated. Right total knee protocol. Will see how he does in therapy today. 2. DVT prophylaxis including thigh-high teds, SCDs, aspirin twice a day. 3. Pain control doing okay with current pain regimen. 4. Disposition he is planned to be discharged home with some home health once get around safely. Will see how he does in therapy today. Admission and Anticipated Discharge Date Admission Date: December 14, 2023 Subjective 73-year-old gentleman postop day 1 from total knee arthroplasty. He is doing pretty well. Some mild amount of pain. Denies any chest pain or shortness of breath. Not feeling dizzy or lightheaded. Has not been to therapy yet. Not sure he is ready for home yet. Physical Exam Physical Exam: Physical exam shows a pleasant middle-age male. He is lying in bed looks pretty comfortable this morning. Examination of the leg reveals the dressing be clean dry and intact he can dorsiflex and plantarflex his foot appropriately. He is having difficulty doing a straight leg raise. He is neurologically intact. Neck: trachea midline, no thyromegaly Respiratory: normal respiratory effort, lungs clear to auscultation Cardiovascular: RRR, no murmur, no edema Gastrointestinal (Abdomen): normal bowel sounds, soft, nontender, no hepatosplenomegaly Results & Data Vital Signs (Past 12 Hours) Vital Signs Temp Pulse Resp BP Pulse Ox O2 Del Method 12/15/23 07:13 36.5 C 77 18 141/70 H 98 Room Air 12/15/23 03:02 36.3 C L 85 16 153/79 H 97 Room Air Laboratory Results Hemoglobin is 12.1. Hematocrit 36.2. Electrolytes are stable. PG Care Time/CCT Total # of Minutes Spent Total Time Spent with Patient: Total time spent is greater than 50% in coordination of care (as documented) at patient's floor/unit and/or counseling patient: Coding Level of Care Code 78497 Post Operative Follow-Up Diagnoses Status post right knee replacement Z96.651
--- NOTE | 2023-12-16 11:17 | Surgery Progress Note ---
Date of Service December 16, 2023 Assessment & Plan (1) Status post right knee replacement: Plan: 73-year-old gentleman postop day 2 from a right knee replacement doing better. Pain is controlled. Is a mobilize little bit better today. No chest pain or shortness of breath. Not feeling dizzy or lightheaded. Feeling more comfortable about going home. Plan: 1. DVT prophylaxis including thigh-high teds, SCDs, aspirin twice a day. 2. PT/OT. Weight-bear as tolerated right total knee protocol. 3. Pain control doing okay with current pain regimen. 4. Disposition plan to discharge to home with some home health after dressing changes therapy today if he does okay. Admission and Anticipated Discharge Date Admission Date: December 14, 2023 Subjective 73-year-old gentleman postoperative day 2 from right knee replacement doing pretty well. Is feeling better today. No chest pain or shortness of breath. Not feeling dizzy or lightheaded. Physical Exam Physical Exam: Physical examination is a pleasant middle-age male. He is lying in bed looks pretty comfortable. Examination of the right leg reveals the dressing be clean dry and intact. Leg is well aligned he can dorsiflex and plantarflex his foot appropriately. He cannot do a straight leg raise. Results & Data Vital Signs (Past 12 Hours) Vital Signs Temp Pulse Resp BP Pulse Ox O2 Del Method 12/16/23 07:44 36.4 C L 68 20 128/72 95 Room Air PG Care Time/CCT Total # of Minutes Spent Total Time Spent with Patient: Total time spent is greater than 50% in coordination of care (as documented) at patient's floor/unit and/or counseling patient: Coding Level of Care Code 61537 Post Operative Follow-Up Diagnoses Status post right knee replacement Z96.651
--- NOTE | 2023-12-18 14:00 | Discharge Summary ---
Date of Service December 18, 2023 Discharge Data Procedures Performed Operation Date: 12/14/23 10:40 Actual Procedures p Right Total Knee Arthroplasty(Right) - Damien Flores MD Hospital Course (1) Status post right knee replacement: This is a 73 year old patient admitted on 12/14/23 and underwent total knee arthroplasty. He tolerated the procedure well and there were no complications. Transferred to the PACU post op and later to the orthopedic floor for further care. He was given ancef for antibiotic prophylaxis. He was also given AUBRIE stockings, SCDs, and aspirin for DVT prophylaxis. Hemoglobin, hematocrit, and vital signs were monitored during his hospital stay and remained stable. Did not require any blood transfusions. There were no complications during his hospital stay. By post op day #2 the patient was tolerating a regular diet, pain was reasonably controlled with oral pain medicine, and he was participating in physical therapy. On post op day #2 the patient was discharged home and set up with home health care. He was given printed discharge instructions including prescriptions for extra strength tylenol, aspirin, cefadroxil, ketorolac, zofran, oxycodone, senokot, and flomax. Continue physical therapy, weight bearing as tolerated. Continue AUBRIE stockings. Follow up approximately 2 weeks post op or sooner if there are problems or concerns. Coding Level of Care Code None Diagnoses Status post right knee replacement Z96.651
== END 2023-12-16 11:32 | disposition home health service (06) ==
LOC: 3E 09:08 → ASU 09:08